=== PATIENT | female | born 1990 | race Caucasian/White ===

== ENCOUNTER → 2020-12-07 | Outpatient (CLI) | payer OTHER ==
--- NOTE | 2020-12-08 06:58 | MR ---
EXAMINATION TYPE: MR liver wo/w con DATE OF EXAM: 12/07/2020 COMPARISON: Outside CT November 16, 2020 HISTORY: Abnormal CT. Acute abdominal pain and palpitations roughly 1 month earlier. CONTRAST: Standard multiplanar, multisequence MRI departmental protocol utilizing 6.5 mL intravenous Gadavist g adolinium contrast. Imaging performed of the abdomen focusing on the liver. FINDINGS: Liver: Liver remains normal in size. No significant signal dropout identified on in and out of phase imaging. Corresponding to CT there is oval roughly 2.5 x 3.4 x 3.1 cm lesion in the inferior aspect a nterior segment right hepatic lobe axial image 23 series 601 and coronal series 201 image 8 of slight T2 hyperintensity that is isodense to minimally hypointense on T1-weighted images. Dynamic postcontr ast imaging is suboptimal as no distinct hepatic arterial phase is performed. The first postcontrast phase imaging shows opacified nondilated portal vein and branching veins and patent hepatic veins ojse ining into IVC. This shows heterogeneous enhancement of the lesion relative to remainder of the liver . More delayed images show lesion to appear isointense to remainder of the liver. There is suggestion of some central linear enhancement or possible enhancing scar. No surrounding ascites. No additional concerning intrahepatic masses. Gallbladder appears within normal limits. No intrahepatic or extra h epatic biliary dilatation. Other: Lung bases are clear. The spleen, pancreas, both adrenal glands appear within normal limits. N o concerning renal mass or hydronephrosis. No suspicious bowel dilatation. No intra-abdominal ascites . Visualized osseous structures are intact. IMPRESSION: Redemonstration of known 3.4 cm solid intrahepatic mass. Dynamic postcontrast imaging fav ors or is most consistent with [facility].
== END | disposition home or self-care (01) ==
LOC: RADMRIMAIN 06:24
PROVIDERS: ATTEND Family Medicine
DX: R16.0 Hepatomegaly, not elsewhere classified (principal)
CPT/HCPCS: 74183; A9585

== ENCOUNTER 2021-09-10 08:35 | Inpatient (IN) | payer MEDICAID, OTHER ==
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
[2021-09-10] MEDS ORDERED: LORazepam 2 MG/ML INJ IM STA (11:47)
[2021-09-10] MEDS ORDERED: HALOPERIDOL LACTATE 5 MG/ML 1 ML VIAL IM STA (11:47)
[2021-09-10] MEDS ORDERED: THIAMINE 100 MG/ML 2 ML VIAL IM STA (11:47)
[2021-09-10] MEDS ORDERED: MAG HYDROX/AL HYDROX/SIMETH 30 ML CUP PO PRN (15:03)
[2021-09-10] MEDS ORDERED: MAGNESIUM HYDROXIDE 2,400 MG/10 ML CUP PO PRN (15:03)
[2021-09-10] MEDS ORDERED: LORazepam 2 MG/ML INJ IM PRN (15:07)
[2021-09-10] MEDS ORDERED: HALOPERIDOL LACTATE 5 MG/ML 1 ML VIAL IM PRN (15:08)
[2021-09-10] MEDS ORDERED: haloperidoL 5 MG TAB PO PRN (15:09)
[2021-09-10 16:50] LABS: Amphetamine Screen,Urine Not Detected (NotDetected); Barbiturate Screen,Urine Not Detected (NotDetected); Benzodiazepines Screen,Urine Detected (NotDetected); Cocaine Screen,Urine Not Detected (NotDetected); Methadone Screen, Urine Not Detected (NotDetected); Opiate Screen,Urine Not Detected (NotDetected); Oxycodone Screen, Urine Not Detected (NotDetected); Phencyclidine Screen,Urine Not Detected (NotDetected); Tricyclic Antidepressant,Urine Not Detected (NotDetected); Urn Cannabinoid Scrn Detected (NotDetected)
[2021-09-10] MEDS: LORazepam 1 MG TAB PO PRN (20:40)
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
[2021-09-11 07:23] LABS: Basophils % (A) 1 %; Eosinophils # (A) 0.1 k/uL (0-0.7); Eosinophils % (A) 1 %; HCT 45.9 % (34.0-46.0); HGB 15.1 gm/dL (11.4-16.0); Lymphocytes % (A) 37 %; MCH 32.2 pg (25.0-35.0); MCV 97.7 fL (80.0-100.0); Mean Platelet Volume 8.2; Monocytes # (A) 0.3 k/uL (0-1.0); Monocytes % (A) 4 %; Neutrophils # (A) 4.5 k/uL (1.3-7.7); Neutrophils % (A) 55 %; Platelet Count 234 k/uL (150-450); RBC 4.69 m/uL (3.80-5.40); RDW 13.5 % (11.5-15.5); WBC 8.1 k/uL (3.8-10.6)
[2021-09-11 07:54] LABS: ALT 29 U/L (4-34); AST 44 U/L (14-36); African American GFR (CKD) >90 (>60 ml/min/1.73 sqM); Albumin 4.1 g/dL (3.5-5.0); Alkaline Phosphatase 80 U/L (38-126); Anion Gap 11 mmol/L; Bilirubin, Delta 0.1 mg/dL (0.0-0.2); Bilirubin,Unconjugated 1.1 mg/dL (0.0-1.1); Blood Urea Nitrogen 14 mg/dL (7-17); Calcium 9.7 mg/dL (8.4-10.2); Carbon Dioxide 25 mmol/L (22-30); Chloride 99 mmol/L (98-107); Glucose 90 mg/dL (74-99); Non-African American GFR(CKD) >90 (>60 ml/min/1.73 sqM); Potassium 3.9 mmol/L (3.5-5.1); Sodium 135 mmol/L (137-145); Total Bilirubin 1.2 mg/dL (0.2-1.3); Total Protein 6.8 g/dL (6.3-8.2)
[2021-09-11] MEDS: NICOTINE 14MG/24HR PATCH TRANSDERM SCH (08:04)
[2021-09-11 11:47] LABS: Chol/HDL Ratio 2.23 Ratio; LDL Cholesterol,Calculated 105.8 mg/dL (0.0-131.0)
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
[2021-09-11] MEDS: DIVALPROEX 250 MG TABLET.DR PO SCH (19:55)
[2021-09-11] MEDS: ACETAMINOPHEN TAB 325 MG TAB PO PRN (20:13)
[2021-09-11] MEDS ORDERED: QUEtiapine 50 MG TAB PO SCH (21:00)
[2021-09-12] MEDS: NICOTINE 14MG/24HR PATCH TRANSDERM SCH (07:17)
[2021-09-12] MEDS: ACETAMINOPHEN TAB 325 MG TAB PO PRN ×2 (08:32→20:39)
[2021-09-12] MEDS: DIVALPROEX 250 MG TABLET.DR PO SCH (08:33)
[2021-09-12] MEDS ORDERED: lamoTRIgine 25 MG TAB PO ONE (09:23)
[2021-09-12] MEDS ORDERED: ASENAPINE 5 MG TAB SUBLINGUAL STA (09:25)
[2021-09-12] MEDS: NICOTINE GUM (POLACRILEX) 2 MG GUM BUCCAL PRN ×3 (09:31→18:36)
--- NOTE | 2021-09-12 10:56 | P.PN ---
Progress Note - Text Progress Note Date: 09/12/21 Interval History: Patient was seen wandering the hallways and was directable and agreeable to speak with residential mortgage underwriter in the office. The patient reports that she is feeling "okay." She states that the Depakote caused her to experience some sort of headache and is inquiring whether she can take Lamictal and Saphris instead of her current regimen. She reports that she underwent Zane site testing and it showed that Saphris was an appropriate medication for her. The patient is agreeable to starting these medications and was informed that usual side effects that she should experience would be mild in nature and possibly psychogenic in origin. The patient is not reporting any suicidal or homicidal ideation, intention, and/or plan. She is not reporting any auditory or visual hallucinations. She does report some difficulty with sleep and some racing thoughts but is otherwise not endorsing any significant manic symptoms. Mental Status Exam: General Appearance: Patient appears to be stated age is alert, directable, and cooperative. Short cut blonde hair. Well laundered clothes. Behavior: Patient is calmly seated without any agitated behavior. Slightly elevated psychomotor activity. Speech: Patient's speech is fluent but mildly pressured. Mood/Affect: Mood is improving mildly, affect is congruent and expansive Suicidality/Homicidality: Patient denies having any suicidal or homicidal ideation intent or plan. Perceptions: Patient denies any visual hallucinations and denies any auditory hallucinations Though content/process: Patient is very somatic. Thought process is otherwise linear and logical. Memory and concentration: AOX3, grossly intact for the purposes of this session Judgment and insight: Improving mildly Vital Signs Temp 97.2 F L 09/11/21 03:14 Pulse 75 09/12/21 09:37 Resp 18 09/12/21 05:30 BP 142/95 09/12/21 09:37 Pulse Ox 97 09/12/21 05:30 Laboratory Results - Last 24 Hours 09/11/21 09/11/21 06:41 06:[address] Glu mg/dL 103 Hemoglobin A1c 5.2 Triglycerides 106.00 Cholesterol 230.00 H LDL Cholesterol, Calc 105.8 VLDL Cholesterol, Calc 21.20 HDL Cholesterol 103.00 H Cholesterol/HDL Ratio 2.23 Assessment Bipolar 1 disorder, manic episode Rule out schizoaffective disorder bipolar type Nicotine dependence Plan: -Patient continues to meet criteria for inpatient psychiatric admission for symptom stabilization and safety. Patient has signed adult voluntary form and medication consent and was placed in patient's chart. -Medications: Start Lamictal 25 mg by mouth daily for mood stabilization Start Saphris 5 mg by mouth twice a day for mood stabilization/psychosis -When necessary Ativan and Haldol for agitation/aggression. -NRT - nicotine patch and Nicorette gum -SW on board for discharge planning. Encouraged the patient to participate in milieu.
[2021-09-12] MEDS: ASENAPINE 5 MG TAB SUBLINGUAL SCH (20:40)
[2021-09-13] MEDS: NICOTINE GUM (POLACRILEX) 2 MG GUM BUCCAL PRN ×4 (05:57→21:20)
[2021-09-13] MEDS: NICOTINE 14MG/24HR PATCH TRANSDERM SCH (08:32)
[2021-09-13] MEDS: ASENAPINE 5 MG TAB SUBLINGUAL SCH ×2 (08:33→21:20)
[2021-09-13] MEDS: lamoTRIgine 25 MG TAB PO SCH (08:33)
--- NOTE | 2021-09-13 10:46 | P.PN ---
Progress Note - Text Progress Note Date: 09/13/21 Interval History: Patient was seen wandering the hallways and was directable and agreeable to speak with promotion writer in the office. The patient reports that she is feeling "better." The patient has been adherent with the medications aside from sedation is not reporting significant side effects. The patient reports that her thoughts appeared to be more linear and easy to follow. She reports that she was able to sleep well last night. She is currently not reporting any haim cidal or homicidal ideation, intention, and/or plan. She is not reporting any auditory or visual hallucinations. She is denying any paranoia or other delusions at this time. The patient displays some future orientation expresses concern about outpatient follow-up as well as finding housing. She wishes to be open with [facility] so that they may aid her in finding a home. Mental Status Exam: General Appearance: Patient appears to be stated age is alert, directable, and cooperative. Short cut blonde hair. Well laundered clothes. Behavior: Patient is calmly seated without any agitated behavior. Normal psychomotor activity. Speech: Patient's speech is fluent and nonpressured today. Mood/Affect: Mood is improving mildly, affect is congruent and with appropriate range Suicidality/Homicidality: Patient denies having any suicidal or homicidal ideation intent or plan. Perceptions: Patient denies any visual hallucinations and denies any auditory hallucinations Though content/process: Patient continues to be somewhat somatic but thought process is otherwise linear and logical. Memory and concentration: AOX3, grossly intact for the purposes of this session Judgment and insight: Improving mildly Vital Signs Temp 97.2 F L 09/13/21 03:58 Pulse 81 09/13/21 03:58 Resp 14 09/13/21 03:58 BP 132/91 09/13/21 03:58 Pulse Ox 97 09/12/21 05:30 Assessment Bipolar 1 disorder, manic episode Rule out schizoaffective disorder bipolar type Nicotine dependence Plan: -Patient continues to meet criteria for inpatient psychiatric admission for symptom stabilization and safety. Patient has signed adult voluntary form and medication consent and was placed in patient's chart. -Medications: Continue Lamictal 25 mg by mouth daily for mood stabilization Increase Saphris to 5 mg in the morning and 10 mg at bedtime for mood stabilization/psychosis -When necessary Ativan and Haldol for agitation/aggression. -NRT - nicotine patch and Nicorette gum -SW on board for discharge planning. Encouraged the patient to participate in milieu.
[2021-09-13] MEDS: ACETAMINOPHEN TAB 325 MG TAB PO PRN (13:30)
[2021-09-13] MEDS: IBUPROFEN 800 MG TAB PO PRN (14:48)
[2021-09-14] MEDS: NICOTINE 14MG/24HR PATCH TRANSDERM SCH (07:34)
[2021-09-14] MEDS: ASENAPINE 5 MG TAB SUBLINGUAL SCH ×2 (08:19→21:08)
[2021-09-14] MEDS: lamoTRIgine 25 MG TAB PO SCH (08:19)
[2021-09-14] MEDS: IBUPROFEN 800 MG TAB PO PRN ×2 (08:20→16:34)
--- NOTE | 2021-09-14 10:52 | P.PN ---
Progress Note - Text Progress Note Date: 09/14/21 Interval History: Patient was seen wandering the hallways and was directable and agreeable to speak with bid writer in the office. The patient reports that she is feeling "okay." The patient expresses some concern about her housing situation. She expresses that she is unhappy with how social workers handling her case. It should be noted though that the patient has been going in between 2 different counties making it difficult to coordinate an aftercare plan. She is currently not reporting any suicidal or homicidal ideation, nausea, and/or plan. She is not reporting auditory or visual hallucinations. She denies any paranoia or delusions. The patient has been harassed medication is not endorsing any significant side effects of this time. She denies any issues regarding her sleep or appetite. In regards to manic symptoms, the patient is not endorsing any racing thoughts, mood lability, increased goal-directed behavior, or excessive energy. Mental Status Exam: General Appearance: Patient appears to be stated age is alert, directable, and cooperative. Short cut blonde hair. Well laundered clothes. Behavior: Patient is calmly seated without any agitated behavior. Normal psychomotor activity. Speech: Patient's speech is fluent and nonpressured today. Mood/Affect: Mood is "okay," affect is irritable Suicidality/Homicidality: Patient denies having any suicidal or homicidal ideation intent or plan. Perceptions: Patient denies any visual hallucinations and denies any auditory hallucinations Though content/process: Patient continues to be somewhat somatic but thought process is otherwise linear and logical. Memory and concentration: AOX3, grossly intact for the purposes of this session Judgment and insight: Improving mildly Vital Signs Temp 97.2 F L 09/13/21 03:58 Pulse 81 09/13/21 03:58 Resp 14 09/13/21 03:58 BP 132/91 09/13/21 03:58 Pulse Ox 97 09/12/21 05:30 Assessment Bipolar 1 disorder, manic episode Rule out schizoaffective disorder bipolar type Nicotine dependence Rule out Cluster B Personality Disorder Plan: -Patient continues to meet criteria for inpatient psychiatric admission for symptom stabilization and safety. Patient has signed adult voluntary form and medication consent and was placed in patient's chart. -Medications: Continue Lamictal 25 mg by mouth daily for mood stabilization Continue Saphris 5 mg in the morning and 10 mg at bedtime for mood stabilization/psychosis -When necessary Ativan and Haldol for agitation/aggression. -NRT - nicotine patch and Nicorette gum -SW on board for discharge planning. Encouraged the patient to participate in milieu.
[2021-09-14] MEDS: NICOTINE GUM (POLACRILEX) 2 MG GUM BUCCAL PRN ×3 (12:12→21:08)
[2021-09-15 05:25] VITALS: BP 124/87; PULSE 65; RESP 16; TEMP 97.6
[2021-09-15] MEDS: NICOTINE 14MG/24HR PATCH TRANSDERM SCH (07:12)
[2021-09-15] MEDS: LORazepam 1 MG TAB PO PRN (07:12)
[2021-09-15] MEDS: lamoTRIgine 25 MG TAB PO SCH (07:13)
[2021-09-15] MEDS: ASENAPINE 5 MG TAB SUBLINGUAL SCH (07:13)
[2021-09-15] MEDS: IBUPROFEN 800 MG TAB PO PRN (08:28)
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
[2021-09-15] MEDS: NICOTINE GUM (POLACRILEX) 2 MG GUM BUCCAL PRN (13:34)
== END 2021-09-15 14:10 | disposition home or self-care (01) | DRG 885 ==
LOC: EC 08:35 → 3MHU 15:00
PROVIDERS: ADMIT Psychiatry & Neurology Psychiatry; ATTEND Psychiatry & Neurology Psychiatry
DX: F31.2 Bipolar disorder, current episode manic severe with psychotic features (principal); F12.10 Cannabis abuse, uncomplicated; Z71.51 Drug abuse counseling and surveillance of drug abuser; Z71.6 Tobacco abuse counseling; F17.210 Nicotine dependence, cigarettes, uncomplicated; Z59.00 Homelessness unspecified; Z79.899 Other long term (current) drug therapy; Z63.5 Disruption of family by separation and divorce; Z56.0 Unemployment, unspecified; Z88.0 Allergy status to penicillin; Z88.8 Allergy status to other drugs, medicaments and biological substances; Z20.822 Contact with and (suspected) exposure to COVID-19
CPT/HCPCS: 80053; 80061; 80306; 81025; 82075; 82248; 83036; 84443; 85025; 87635; 96372; 99285

== ENCOUNTER 2021-12-03 09:52 | Inpatient (IN) | payer MEDICAID, OTHER ==
[2021-12-03 10:34] LABS: Amphetamine Screen,Urine Not Detected (NotDetected); Barbiturate Screen,Urine Not Detected (NotDetected); Benzodiazepines Screen,Urine Not Detected (NotDetected); Cocaine Screen,Urine Not Detected (NotDetected); Methadone Screen, Urine Not Detected (NotDetected); Opiate Screen,Urine Not Detected (NotDetected); Oxycodone Screen, Urine Not Detected (NotDetected); Phencyclidine Screen,Urine Not Detected (NotDetected); Tricyclic Antidepressant,Urine Not Detected (NotDetected); Urn Cannabinoid Scrn Not Detected (NotDetected)
--- NOTE | 2021-12-03 11:09 | ED ---
Psych HPI - General Chief Complaint: Psychiatric Symptoms Stated Complaint: mental health Time Seen by Provider: 12/03/21 09:53 Source: patient, EMS, RN notes reviewed Mode of arrival: wheelchair Limitations: no limitations - History of Present Illness Initial Comments: 31-year-old female presents emergency Department via EMS for psychiatric evaluation. Patient states she needs help she was admitted in August for psychiatric problems states that she's getting worse. She was placed on Saphris at the time but states that she did not agree with it. Patient has flight of ideas, room thoughts in the room patient denies illicit drug use she states she is having suicidal ideation she's had a prior suicide attempt at age 16 and which tried overdose. Patient denies any homicidal ideation - Related Data Home Medications Medication Instructions Recorded Confirmed Apri 0.15-0.03mg 1 tab PO DAILY 12/03/21 12/03/21 Ibuprofen [Motrin Ib] 200 mg PO Q8H PRN 12/03/21 12/03/21 Allergies Allergy/AdvReac Type Severity Reaction Status Date / Time ciprofloxacin [From Cipro] Allergy Rash/Hives Verified 12/03/21 13:36 clavulanic acid Allergy Rash/Hives Verified 12/03/21 13:36 [From Augmentin] nickel Allergy Rash/Hives Verified 12/03/21 13:36 risperidone [From Risperdal] Allergy Unknown Verified 12/03/21 13:36 Childhood amoxicillin [From Augmentin] AdvReac Rash/Hives Verified 12/03/21 13:36 Review of Systems ROS Statement: Those systems with pertinent positive or pertinent negative responses have been documented in the HPI. ROS Other: All systems not noted in ROS Statement are negative. Past Medical History Past Medical History: No Reported History History of Any Multi-Drug Resistant Organisms: None Reported Past Surgical History: No Surgical Hx Reported Past Psychological History: Bipolar Smoking Status: Former smoker Past Alcohol Use History: Daily Past Drug Use History: Marijuana - Past Family History Mother Family Medical History: Hyperlipidemia General Exam General appearance: alert, in no apparent distress, anxious Head exam: Present: atraumatic, normocephalic, normal inspection Eye exam: Present: normal appearance, PERRL, EOMI. Absent: scleral icterus, conjunctival injection, periorbital swelling ENT exam: Present: normal exam, normal oropharynx, mucous membranes moist Neck exam: Present: normal inspection. Absent: tenderness, meningismus, lymphadenopathy Respiratory exam: Present: normal lung sounds bilaterally. Absent: respiratory distress, wheezes, rales, rhonchi, stridor Cardiovascular Exam: Present: regular rate, normal rhythm, normal heart sounds. Absent: systolic murmur, diastolic murmur, rubs, gallop, clicks Neurological exam: Present: alert, oriented X3 Psychiatric exam: Present: anxious, manic Skin exam: Present: warm, dry, intact, normal color. Absent: rash Course Vital Signs 12/03/21 09:54 Temperature 98.2 F Pulse Rate 105 H Respiratory 19 Rate Blood Pressure 156/87 O2 Sat by Pulse 98 Oximetry Medical Decision Making - Medical Decision Making Patient had by psychiatric services recommends patient. Mid to the hospital for treatment - Lab Data Lab Results 12/03/21 Range/Units 10:06 Urine Opiates Screen Not Detected (NotDetected) Ur Oxycodone Screen Not Detected (NotDetected) Urine Methadone Screen Not Detected (NotDetected) Ur Propoxyphene Screen Not Detected (NotDetected) Ur Barbiturates Screen Not Detected (NotDetected) U Tricyclic Antidepress Not Detected (NotDetected) Ur Phencyclidine Scrn Not Detected (NotDetected) Ur Amphetamines Screen Not Detected (NotDetected) U Methamphetamines Scrn Not Detected (NotDetected) U Benzodiazepines Scrn Not Detected (NotDetected) Urine Cocaine Screen Not Detected (NotDetected) U Marijuana (THC) Screen Not Detected (NotDetected) Disposition Clinical Impression: Psychosis, Depression, Suicidal ideation Disposition: TRANSFER TO PSYCH HOSP/UNIT Referrals: Haja Girard MD [Primary Care Provider] - 1-2 days
[2021-12-03] MEDS ORDERED: NICOTINE 21MG/24HR PATCH TRANSDERM STA (12:49)
[2021-12-03] MEDS ORDERED: MAG HYDROX/AL HYDROX/SIMETH 30 ML CUP PO PRN (14:59)
[2021-12-03] MEDS ORDERED: MAGNESIUM HYDROXIDE 2,400 MG/10 ML CUP PO PRN (14:59)
[2021-12-03] MEDS ORDERED: HALOPERIDOL LACTATE 5 MG/ML 1 ML VIAL IM PRN (14:59)
[2021-12-03] MEDS ORDERED: LORazepam 2 MG/ML INJ IM PRN (15:03)
[2021-12-03] MEDS ORDERED: haloperidoL 5 MG TAB PO PRN (15:03)
[2021-12-03] MEDS ORDERED: ACETAMINOPHEN TAB 325 MG TAB PO PRN (16:26)
[2021-12-03] MEDS: LORazepam 1 MG TAB PO PRN (19:43)
--- NOTE | 2021-12-04 02:55 | P.MDCNMH ---
History of Present Illness H&P Date: 12/04/21 Chief Complaint: medical eval 31 year old female with borderline hypertension , not currently on medications patient comes in due to suicidal ideation requesting psych eval she denies any medical concerns at this time, denies any fever, chills, URI, chest pain SOB, abd pain , GI bleeding, changes in urinary or bowel habits. she does have blisters on her feet due to doing a lot of walking Review of Systems Pertinent positives as noted in HPI. All other systems were reviewed and are negative Past Medical History Past Medical History: No Reported History History of Any Multi-Drug Resistant Organisms: None Reported Past Surgical History: No Surgical Hx Reported Past Anesthesia/Blood Transfusion Reactions: No Reported Reaction Past Psychological History: Bipolar Smoking Status: Former smoker Past Alcohol Use History: Daily Past Drug Use History: Marijuana - Past Family History Mother Family Medical History: Hyperlipidemia Medications and Allergies Home Medications Medication Instructions Recorded Confirmed Type Apri 0.15-0.03mg 1 tab PO DAILY 12/03/21 12/03/21 History Ibuprofen [Motrin Ib] 200 mg PO Q8H PRN 12/03/21 12/03/21 History Allergies Allergy/AdvReac Type Severity Reaction Status Date / Time ciprofloxacin [From Cipro] Allergy Rash/Hives Verified 12/03/21 13:36 clavulanic acid Allergy Rash/Hives Verified 12/03/21 13:36 [From Augmentin] nickel Allergy Rash/Hives Verified 12/03/21 13:36 risperidone [From Risperdal] Allergy Unknown Verified 12/03/21 13:36 Childhood amoxicillin [From Augmentin] AdvReac Rash/Hives Verified 12/03/21 13:36 Physical Exam Vitals: Vital Signs Temp Pulse Pulse Resp BP BP Pulse Ox 12/03/21 15:57 98.2 F 83 16 147/100 97 12/03/21 09:54 98.2 F 105 H 19 156/87 98 Intake and Output 12/03/21 12/03/21 12/04/21 14:59 22:59 06:59 Other: Weight 61.235 kg 63 kg Constitutional: No acute distress, conversant, pleasant Eyes: Anicteric sclerae, moist conjunctiva, Pupils equal round reactive to light ENMT: NC/AT Oropharynx clear, no erythema, or exudates Neck: Supple, no masses, or JVD No carotid bruits No thyromegaly Lungs: Clear to auscultation Clear to percussion Normal respiratory effort, no accessory muscle use Cardiovascular: Heart regular in rate and rhythm, No murmurs, gallops, or rubs No peripheral edema Abdominal: Soft Nontender, no guarding, rebound or rigidity Abdomen moving with respiration Normoactive bowel sounds No hepatomegaly, No splenomegaly No palpable mass No abdominal wall hernia noted Skin: blisters bilateral feet over the sole of some of her toes, otherwise Normal temperature, tone, texture, turgor Extremities: No digital cyanosis No clubbing Pedal pulses intact and symmetrical Radial pulses intact and symmetrical No calf tenderness Psychiatric: Alert and oriented to person, place and time Appropriate affect Neuro Muscles Strength 5/5 in all 4 extremities Sensation to light touch grossly present throughout Cranial nerves II-XII grossly intact Lymphatics: no palpable cervical or supraclavicular , or inguinal lymph nodes Cranial Nerve Examination - Cranial Nerves Cranial Nerve II- Optic: Intact Cranial Nerve III- Oculomotor: Intact Cranial Nerve IV- Trochlear: Intact Cranial Nerve V- Trigeminal: Intact Cranial Nerve - Abducens: Intact Cranial Nerve VII- Facial: Intact Cranial Nerve VIII- Auditory: Intact Cranial Nerve IX- Glossopharyngeal: Intact Cranial Nerve X- Vagus: Intact Cranial Nerve XI- Accessory: Intact Cranial Nerve XII- Hypoglossal: Intact Assessment and Plan Assessment: depression and suicidal ideation management per psych no acute medical conditions border line hypertension not on medications continue to monitor her blood pressure, if persistently high , then will consider starting on amlodipine follow up labs Thank you for allowing us to participate in the care of this patient. We will follow peripherally. Do not hesitate to contact us with questions. Someone can be reached from the [facility] hospitalist group at all hours of the day at [phone].
[2021-12-04 07:42] LABS: Basophils % (A) 1 %; Eosinophils # (A) 0.2 k/uL (0-0.7); Eosinophils % (A) 2 %; HCT 48.5 % (34.0-46.0); HGB 15.9 gm/dL (11.4-16.0); Lymphocytes # (A) 2.7 k/uL (1.0-4.8); Lymphocytes % (A) 34 %; MCH 32.3 pg (25.0-35.0); MCHC 32.7 g/dL (31.0-37.0); MCV 98.8 fL (80.0-100.0); Mean Platelet Volume 8.6; Monocytes # (A) 0.5 k/uL (0-1.0); Monocytes % (A) 6 %; Neutrophils # (A) 4.3 k/uL (1.3-7.7); Neutrophils % (A) 55 %; Platelet Count 270 k/uL (150-450); RBC 4.91 m/uL (3.80-5.40); RDW 13.6 % (11.5-15.5); WBC 7.9 k/uL (3.8-10.6)
[2021-12-04 08:02] LABS: ALT 36 U/L (4-34); AST 36 U/L (14-36); African American GFR (CKD) >90 (>60 ml/min/1.73 sqM); Albumin 3.9 g/dL (3.5-5.0); Alkaline Phosphatase 77 U/L (38-126); Anion Gap 3 mmol/L; Blood Urea Nitrogen 13 mg/dL (7-17); Calcium 9.2 mg/dL (8.4-10.2); Carbon Dioxide 29 mmol/L (22-30); Chloride 104 mmol/L (98-107); Glucose 85 mg/dL (74-99); Non-African American GFR(CKD) >90 (>60 ml/min/1.73 sqM); Sodium 136 mmol/L (137-145); Total Bilirubin 0.7 mg/dL (0.2-1.3); Total Protein 6.9 g/dL (6.3-8.2)
[2021-12-04] MEDS ORDERED: NICOTINE 14MG/24HR PATCH TRANSDERM SCH (09:00)
[2021-12-04] MEDS ORDERED: PNEUMOCOCCAL VACC-PNEUMOVAX 23 25 MCG/0.5 ML VIAL IM ONE (10:00)
[2021-12-04] MEDS ORDERED: INFLUENZA VACC (6 MOS-64 YRS) 60 MCG/0.5 ML SYRINGE IM ONE (10:00)
[2021-12-04] MEDS: NICOTINE 21MG/24HR PATCH TRANSDERM SCH (10:04)
[2021-12-04] MEDS ORDERED: hydrOXYzine pamoate 25 MG CAP PO PRN (12:01)
[2021-12-04] MEDS ORDERED: ZIPRASIDONE 20 MG CAP PO PRN (12:17)
[2021-12-04] MEDS ORDERED: ZIPRASIDONE 20 MG VIAL IM PRN (12:17)
--- NOTE | 2021-12-04 12:17 | P.HP ---
Psychiatric H&P - . H&P Date: 12/04/21 History & Physical: Allergies Allergy/AdvReac Type Severity Reaction Status Date / Time ciprofloxacin [From Cipro] Allergy Rash/Hives Verified 12/03/21 13:36 clavulanic acid Allergy Rash/Hives Verified 12/03/21 13:36 [From Augmentin] nickel Allergy Rash/Hives Verified 12/03/21 13:36 risperidone [From Risperdal] Allergy Unknown Verified 12/03/21 13:36 Childhood amoxicillin [From Augmentin] AdvReac Rash/Hives Verified 12/03/21 13:36 Vital Signs Temp 97.4 F L 12/04/21 06:22 Pulse 99 12/04/21 10:01 Resp 18 12/04/21 06:22 BP 132/94 12/04/21 10:01 Pulse Ox 97 12/03/21 15:57 Intake & Output 12/03/21 12/04/21 12/04/21 18:59 06:59 18:59 Weight 63 kg Laboratory Last Values WBC 7.9 k/uL (3.8-10.6) 12/04/21 06:56 RBC 4.91 m/uL (3.80-5.40) 12/04/21 06:56 Hgb 15.9 gm/dL (11.4-16.0) 12/04/21 06:56 Hct 48.5 % (34.0-46.0) H 12/04/21 06:56 MCV 98.8 fL (80.0-100.0) 12/04/21 06:56 MCH 32.3 pg (25.0-35.0) 12/04/21 06:56 MCHC 32.7 g/dL (31.0-37.0) 12/04/21 06:56 RDW 13.6 % (11.5-15.5) 12/04/21 06:56 Plt Count 270 k/uL (150-450) 12/04/21 06:56 MPV 8.6 12/04/21 06:56 Neutrophils % 55 % 12/04/21 06:56 Lymphocytes % 34 % 12/04/21 06:56 Monocytes % 6 % 12/04/21 06:56 Eosinophils % 2 % 12/04/21 06:56 Basophils % 1 % 12/04/21 06:56 Neutrophils # 4.3 k/uL (1.3-7.7) 12/04/21 06:56 Lymphocytes # 2.7 k/uL (1.0-4.8) 12/04/21 06:56 Monocytes # 0.5 k/uL (0-1.0) 12/04/21 06:56 Eosinophils # 0.2 k/uL (0-0.7) 12/04/21 06:56 Basophils # 0.0 k/uL (0-0.2) 12/04/21 06:56 Sodium 136 mmol/L (137-145) L 12/04/21 06:56 Potassium 4.0 mmol/L (3.5-5.1) 12/04/21 06:56 Chloride 104 mmol/L (98-107) 12/04/21 06:56 Carbon Dioxide 29 mmol/L (22-30) 12/04/21 06:56 Anion Gap 3 mmol/L 12/04/21 06:56 BUN 13 mg/dL (7-17) 12/04/21 06:56 Creatinine 0.79 mg/dL (0.52-1.04) 12/04/21 06:56 Est GFR (CKD-EPI)AfAm >90 (>60 ml/min/1.73 sqM) 12/04/21 06:56 Est GFR (CKD-EPI)NonAf >90 (>60 ml/min/1.73 sqM) 12/04/21 06:56 Glucose 85 mg/dL (74-99) 12/04/21 06:[address] Glu mg/dL 103 12/04/21 06:56 Hemoglobin A1c 5.2 % (0.0-6.0) 12/04/21 06:56 Calcium 9.2 mg/dL (8.4-10.2) 12/04/21 06:56 Total Bilirubin 0.7 mg/dL (0.2-1.3) 12/04/21 06:56 AST 36 U/L (14-36) 12/04/21 06:56 ALT 36 U/L (4-34) H 12/04/21 06:56 Alkaline Phosphatase 77 U/L (38-126) 12/04/21 06:56 Total Protein 6.9 g/dL (6.3-8.2) 12/04/21 06:56 Albumin 3.9 g/dL (3.5-5.0) 12/04/21 06:56 TSH 0.849 mIU/L (0.465-4.680) 12/04/21 06:56 Urine Opiates Screen Not Detected (NotDetected) 12/03/21 10:06 Ur Oxycodone Screen Not Detected (NotDetected) 12/03/21 10:06 Urine Methadone Screen Not Detected (NotDetected) 12/03/21 10:06 Ur Propoxyphene Screen Not Detected (NotDetected) 12/03/21 10:06 Ur Barbiturates Screen Not Detected (NotDetected) 12/03/21 10:06 U Tricyclic Antidepress Not Detected (NotDetected) 12/03/21 10:06 Ur Phencyclidine Scrn Not Detected (NotDetected) 12/03/21 10:06 Ur Amphetamines Screen Not Detected (NotDetected) 12/03/21 10:06 U Methamphetamines Scrn Not Detected (NotDetected) 12/03/21 10:06 U Benzodiazepines Scrn Not Detected (NotDetected) 12/03/21 10:06 Urine Cocaine Screen Not Detected (NotDetected) 12/03/21 10:06 U Marijuana (THC) Screen Not Detected (NotDetected) 12/03/21 10:06 Coronavirus (PCR) Not Detected (Not Detectd) 12/03/21 13:25 12/04/21 11:52 IDENTIFYING DATA: Patient is a unemployed, 31-year-old female with significant history of bipolar disorder, has 3 kids, is currently homeless. HPI: Patient presented to the hospital yesterday for psychiatric evaluation according to ER report. Patient stated that she apparently been on Saphris in August and also Lamictal during her last psychiatric hospitalization on the mental health unit. She had stated that it did not agree with her and was developing side effects. She had flight of ideas and was having suicidal thoughts on admission. Her UDS was negative. Patient was admitted and signed voluntary. She was seen today and agreeable to speak to contract technical writer. Patient displayed a flight of ideas, was rambling and tangential/circumstantial. She claims that she is currently homeless and got kicked out of her mother's house. She states that her mother has been using "some kind of new drug" and has been unstable. She states that the police wouldn't let her back in the house and she has been finding it difficult homeless. She states that she has been sleeping on different people's couches and has been staying at drug houses however states that "I'm being exposed to drugs but not using them" and states that she "can't use drugs anymore". She states that she has had multiple pain complaints and also talked about having "PCO S" and other somatic issues. She claims that she does have racing thoughts and is admitting to depression, feeling overwhelmed and hopeless. She is also endorsing anxiety. She states that her sleep has been very poor lately. She is currently endorsing suicidal thoughts however no intent or plan. She is denying any auditory or visual hallucinations. She is not endorsing any delusions at this time or paranoia. She claims that she stopped taking the psychiatric medications after discharge last in August. PAST PSYCHIATRIC HISTORY: Patient states that previously diagnosed bipolar disorder and anxiety. Patient is able to recall being previously prescribed Abilify, Stelazine, Risperdal, Trileptal, Wellbutrin, BuSpar, Depakote, lithium, Lamictal, and Trintellix. She claims that she has had several side effects and problems with different medications in the past however was very nonspecific. The patient reports numerous psychiatric admissions i and her last psychiatric admission to the mental health unit was in August 2021. Patient was previously open with [facility] but her case has been closed by [facility]. The patient reports one prior attempt at suicide when she was 16. PMH: PCOS ALLERGIES: As per EMR CHEMICAL DEPENDENCY HISTORY: The patient reports occasional alcohol use however claims that he she has stopped using this. She does report daily tobacco use. She denies any marijuana or illicit drug use. FAMILY PSYCHIATRIC/SUBSTANCE USE HISTORY: The patient reports that her mother has Munchhausen syndrome and also drug abuse. She also reports that her father has drug-induced psychosis. SOCIAL HISTORY: Patient was born in [place] and raised in [place], [place]. The patient is currently legally . She currently has no income. She has 3 children in [place]. She is currently homeless. She reports no history of legal issues or service. MENTAL STATUS EXAM: General Appearance: Patient appears to be stated age is alert, directable, and attempts to cooperate. Patient appears to have fair hygiene and grooming. Behavior: Patient is seated without any agitated behavior. Psychomotor activity elevated. Eye contact is intense. Speech: Patient's speech is spontaneous, pressured, rapid, hyperverbal. Mood/Affect: Patient reports their mood is "depression and anxiety," affect is expansive and euphoric Suicidality/Homicidality: Patient denies having any homicidal ideation intent or plan. Denies any suicidal ideations intent or plan Perceptions: Patient denies any visual hallucinations and denies any auditory hallucinations Though content/process: tangential/circumstantial, rambles at times. somatically preoccupied. Thought process appears to be with a flight of ideas. Memory and concentration: AOX3, grossly intact for the purposes of this session. Can spell "WORLD" backwards Judgment and insight: poor STRENGTHS/WEAKNESSES: Strength is that the patient is in relatively good health. Weakness that the patient has a history of nonadherence with treatment and has severe mental illness. INTELLECT: average IMPRESSIONS: Bipolar disorder, mixed episode PTSD Nicotine dependence PLAN: -Patient is admitted under involuntary but converted to voluntary status to MHU for stabilization of psychiatric symptoms and safety. Patient signed adult voluntary form and medication consent and is placed in patient's chart. -Medications : Will start patient on Seroquel 25 mg daily at bedtime for mood stabilization/insomnia. patient requested to start back on trintellix 10 mg daily for mood/anxiety. vistaril prn for anxiety. -Ativan and Haldol PRN for agitation/aggression -Patient was informed of the risks, benefits and side effects of the medication and patient verbally consented to taking the medications. Patient signed med consent form and was placed in chart. -Internal Medicine consult to perform medical evaluation and physical. -NRT - nicotine patch - on board for discharge planning. Encourage patient to participate in groups to work on coping skills. patient is currently homeless and will need to be referred back to [facility] for follow up upon d/c 12/04/21 12:05
[2021-12-04] MEDS: VORTIOXETINE HYDROBROMIDE 10 MG TABLET PO SCH (12:35)
[2021-12-04] MEDS: LORazepam 1 MG TAB PO PRN ×2 (13:20→19:57)
[2021-12-04] MEDS: ETHINYL ESTRADIOL PO SCH (15:15)
[2021-12-04] MEDS: LEVONORGESTREL PO SCH (15:15)
[2021-12-04 15:19] LABS: Chol/HDL Ratio 2.27 Ratio; LDL Cholesterol,Calculated 127.3 mg/dL (0.0-131.0)
[2021-12-04] MEDS: QUEtiapine 25 MG TAB PO SCH ×2 (20:00→21:53)
[2021-12-04] MEDS ORDERED: QUEtiapine 50 MG TAB PO SCH (21:00)
[2021-12-05] MEDS: NICOTINE 21MG/24HR PATCH TRANSDERM SCH ×2 (08:22→12:58)
[2021-12-05] MEDS: VORTIOXETINE HYDROBROMIDE 10 MG TABLET PO SCH (08:54)
[2021-12-05] MEDS: ETHINYL ESTRADIOL PO SCH (08:55)
[2021-12-05] MEDS: LEVONORGESTREL PO SCH (08:55)
--- NOTE | 2021-12-05 10:05 | P.PN ---
Progress Note - Text Progress Note Date: 12/05/21 Interval History: Patient was seen wandering the hallways and was directable and agreeable to [facility] with web content writer in the office. Patient claims that she feels that she is going through withdrawals from her ocp that she was taking prior to coming into the hospital yesterday. She claims that she is doing better overall in terms of her mood and anxiety however has been very preoccupied still with her somatic symptoms and her PCOS. She continues to us several questions about antipsychotics and medications. She is more appropriate today more directable during conversation. Improvement in irritability and also in attention span. She continues to state that she is homeless and was asking about different options in the area. Patient is willing to go to the [facility] tomorrow. She asked if web content writer can prescribe her Apri which is her OCP for tomorrow. She claims that she was able to sleep very well last night and has a fair appetite. She claims that she is not interested in going to groups. At this time patient denies any suicidal or homical ideations, intent or plan. Patient denies any auditory, visual hallucinations. Patient denies any side effects from the medications and has been compliant with meds. Mental Status Exam: General Appearance: Patient appears to be stated age is alert, directable, and attempts to cooperate. Patient appears to have fair hygiene and grooming. Behavior: Patient is seated without any agitated behavior. Eye contact improving. More appropriate today. Speech: Patient's speech is spontaneous, rapid, improving Mood/Affect: Patient reports their mood is "better but frustrated," affect is congruent Suicidality/Homicidality: Patient denies having any homicidal ideation intent or plan. Denies any suicidal ideations intent or plan Perceptions: Patient denies any visual hallucinations and denies any auditory hallucinations Though content/process: rambles at times. somatically preoccupied. Thought process, more goal oriented. Memory and concentration: AOX3, grossly intact for the purposes of this session. Can spell "WORLD" backwards Judgment and insight: Improving mildly IMPRESSIONS: Bipolar disorder, mixed episode PTSD Nicotine dependence Plan: -Patient continues to meet criteria for inpatient psychiatric admission for symptom stabilization and safety. Patient has signed adult voluntary form and medication consent and was placed in patient's chart. -Medications: Continue Seroquel 25 mg daily at bedtime for mood stabiliza tion/insomnia. increase trintellix to 20 mg daily for mood/anxiety. vistaril prn for anxiety. -When necessary Ativan and Haldol for agitation/aggression. -web content writer called pharmacy to see if there was an equivalent ocp option for patient however there are currently none on formulary. -NRT - nicotine patch -SW on board for discharge planning. Encouraged the patient to participate in milieu. patient is currently homeless and will likely be discharged to group home tomorrow.
[2021-12-05 15:35] LABS: Appearance,Urine Clear (Clear); Bilirubin,Urine Negative (Negative); Blood,Urine Negative (Negative); Color,Urine Colorless; Glucose,Urine (UA) Negative (Negative); Ketones,Urine Negative (Negative); Leukocyte Esterase,Urine Negative (Negative); Nitrite,Urine Negative (Negative); PH, Urine 6.5 (5.0-8.0); Protein,Urine Negative (Negative); Specific Gravity,Urine 1.002 (1.001-1.035); Urobilinogen,Urine <2.0 mg/dL (<2.0)
[2021-12-05] MEDS: LORazepam 1 MG TAB PO PRN (17:41)
[2021-12-05] MEDS: QUEtiapine 25 MG TAB PO SCH (19:45)
[2021-12-06] MEDS: NICOTINE 14MG/24HR PATCH TRANSDERM SCH ×2 (07:59→10:59)
[2021-12-06] MEDS: ETHINYL ESTRADIOL PO SCH (07:59)
[2021-12-06] MEDS: LEVONORGESTREL PO SCH (07:59)
[2021-12-06 08:01] VITALS: BP 138/66; PULSE 89; RESP 20; TEMP 97.5
[2021-12-06] MEDS ORDERED: VORTIOXETINE HYDROBROMIDE 20 MG TABLET PO SCH (09:00)
[2021-12-06] MEDS ORDERED: HYDROCORTISONE 1% CREAM 30 GM TUBE TOPICAL PRN (09:51)
[2021-12-06] MEDS ORDERED: NICOTINE GUM (POLACRILEX) 2 MG GUM BUCCAL PRN (10:07)
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
== END 2021-12-06 14:03 | disposition other institution (70) | DRG 885 ==
LOC: EC 09:52 → 3MHU 14:54
PROVIDERS: ADMIT Psychiatry & Neurology Psychiatry; ATTEND Psychiatry & Neurology Psychiatry
DX: F31.60 Bipolar disorder, current episode mixed, unspecified (principal); R45.851 Suicidal ideations; E28.2 Polycystic ovarian syndrome; Z20.822 Contact with and (suspected) exposure to COVID-19; F17.200 Nicotine dependence, unspecified, uncomplicated; F43.10 Post-traumatic stress disorder, unspecified; G47.00 Insomnia, unspecified; Z59.00 Homelessness unspecified; Z63.5 Disruption of family by separation and divorce; Z79.899 Other long term (current) drug therapy; Z91.51 Personal history of suicidal behavior
CPT/HCPCS: 80053; 80061; 80306; 81003; 81025; 82075; 83036; 84443; 85025; 87635; 90686; 90732; 99285

== ENCOUNTER 2021-12-09 04:01 | Inpatient (IN) | payer MEDICAID, OTHER ==
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
[2021-12-09 08:11] LABS: Appearance,Urine Clear (Clear); Bilirubin,Urine Negative (Negative); Blood,Urine Negative (Negative); Color,Urine Yellow; Glucose,Urine (UA) Negative (Negative); Ketones,Urine Negative (Negative); Leukocyte Esterase,Urine Negative (Negative); Nitrite,Urine Negative (Negative); Protein,Urine Negative (Negative); Specific Gravity,Urine 1.015 (1.001-1.035); Urobilinogen,Urine <2.0 mg/dL (<2.0)
[2021-12-09 08:23] LABS: Amphetamine Screen,Urine Not Detected (NotDetected); Barbiturate Screen,Urine Not Detected (NotDetected); Benzodiazepines Screen,Urine Not Detected (NotDetected); Cocaine Screen,Urine Not Detected (NotDetected); Methadone Screen, Urine Not Detected (NotDetected); Opiate Screen,Urine Not Detected (NotDetected); Oxycodone Screen, Urine Not Detected (NotDetected); Phencyclidine Screen,Urine Not Detected (NotDetected); Tricyclic Antidepressant,Urine Not Detected (NotDetected); Urn Cannabinoid Scrn Detected (NotDetected)
[2021-12-09] MEDS ORDERED: MAG HYDROX/AL HYDROX/SIMETH 30 ML CUP PO PRN (10:57)
[2021-12-09] MEDS ORDERED: MAGNESIUM HYDROXIDE 2,400 MG/10 ML CUP PO PRN (10:57)
[2021-12-09] MEDS ORDERED: HALOPERIDOL LACTATE 5 MG/ML 1 ML VIAL IM PRN (10:57)
[2021-12-09] MEDS ORDERED: ACETAMINOPHEN TAB 325 MG TAB PO PRN (10:57)
[2021-12-09] MEDS ORDERED: NICOTINE 14MG/24HR PATCH TRANSDERM SCH (11:00)
[2021-12-09] MEDS ORDERED: haloperidoL 1 MG TAB PO PRN (11:00)
[2021-12-09] MEDS ORDERED: LORazepam 2 MG/ML INJ IV PRN (11:00)
[2021-12-09] MEDS ORDERED: HYDROCORTISONE 1% CREAM 30 GM TUBE TOPICAL PRN (11:01)
[2021-12-09] MEDS: VORTIOXETINE HYDROBROMIDE 20 MG TABLET PO SCH (12:08)
[2021-12-09] MEDS: NICOTINE 21MG/24HR PATCH TRANSDERM SCH (12:10)
--- NOTE | 2021-12-09 13:28 | P.HPMEDMHU ---
History of Present Illness Chief Complaint: Medical consult Patient is a 31-year-old female with a past medical history significant for polysubstance abuse, major depression disorder that presents to the hospital secondary to having unsafe and extremity depressed. Internal medicine was consulted for medical management. She denies any medical conditions to me. Vital signs are stable afebrile, normotensive, saturating on room air, urinalysis negative, toxicology positive for THC and negative for coronavirus. She denies any constitutional symptoms including chest pain, shortness of breath, palpitations, nausea or vomiting. Past Medical History Past Medical History: No Reported History Additional Past Medical History / Comment(s): PCOS History of Any Multi-Drug Resistant Organisms: None Reported Past Surgical History: No Surgical Hx Reported Past Anesthesia/Blood Transfusion Reactions: No Reported Reaction Past Psychological History: Bipolar Smoking Status: Former smoker Past Alcohol Use History: Daily Past Drug Use History: Marijuana - Past Family History Mother Family Medical History: Hyperlipidemia Medications and Allergies Home Medications Medication Instructions Recorded Confirmed Type Apri 0.15-0.03mg 1 tab PO DAILY 30 Days #0 12/06/21 12/09/21 Rx Hydrocortisone Cream 1 applic TOPICAL BID PRN #1 cream 12/06/21 12/09/21 Rx [Hydrocortisone 1% Cream] Ibuprofen [Motrin Ib] 200 mg PO Q8H PRN 30 Days tab 12/06/21 12/09/21 Rx Nicotine 14Mg/24Hr Patch [Habitrol] 1 patch TRANSDERM DAILY 14 Days 12/06/21 12/09/21 Rx patch QUEtiapine [SEROquel] 25 mg PO HS 30 Days tab 12/06/21 12/09/21 Rx Vortioxetine Hydrobromide 20 mg PO DAILY 30 Days tablet 12/06/21 12/09/21 Rx [Trintellix] Allergies Allergy/AdvReac Type Severity Reaction Status Date / Time ciprofloxacin [From Cipro] Allergy Rash/Hives Verified 12/09/21 11:34 clavulanic acid Allergy Rash/Hives Verified 12/09/21 11:34 [From Augmentin] nickel Allergy Rash/Hives Verified 12/09/21 11:34 risperidone [From Risperdal] Allergy Unknown Verified 12/09/21 11:34 Childhood amoxicillin [From Augmentin] AdvReac Rash/Hives Verified 12/09/21 11:34 Physical Exam Vitals: Vital Signs Temp Pulse Pulse Resp BP BP Pulse Ox 12/09/21 12:18 98.1 F 89 17 143/96 12/09/21 11:37 98.1 F 89 17 143/96 12/09/21 04:07 98.3 F 80 22 161/90 97 Intake and Output 12/08/21 12/09/21 12/09/21 22:59 06:59 14:59 Other: Weight 58.967 kg 58.967 kg Gen. patient is tearful during examination and seems depressed Cardio normal S1/S2 Respiratory no wheezing or rhonchi appreciated Abdomen soft, nontender Psychiatry patient is depressed however anoderm 3 Cranial Nerve Examination - Cranial Nerves Cranial Nerve I- Olfactory: Intact Cranial Nerve II- Optic: Intact Cranial Nerve III- Oculomotor: Intact Cranial Nerve IV- Trochlear: Intact Cranial Nerve V- Trigeminal: Intact Cranial Nerve - Abducens: Intact Cranial Nerve VII- Facial: Intact Cranial Nerve VIII- Auditory: Intact Cranial Nerve IX- Glossopharyngeal: Intact Cranial Nerve X- Vagus: Intact Cranial Nerve XI- Accessory: Intact Cranial Nerve XII- Hypoglossal: Intact Results Labs: Abnormal Lab Results - Last 24 Hours (Table) 12/09/21 Range/Units 08:01 U Marijuana (THC) Screen Detected H (NotDetected) Thrombosis Risk Factor Assmnt - Choose All That Apply Any of the Below Risk Factors Present?: No Other Risk Factors: No Thrombosis Risk Factor Assessment Level: Very Low Risk Assessment and Plan Assessment: Assessment: #1 major depression disorder #2 polysubstance abuse Plan: -Continue management as per psychiatry unit -Vital signs, urinalysis and toxicology reviewed -Please not hesitate to contact us with any questions.
[2021-12-09] MEDS: hydrOXYzine pamoate 25 MG CAP PO PRN (20:06)
[2021-12-09] MEDS ORDERED: QUEtiapine 25 MG TAB PO SCH (21:00)
[2021-12-09] MEDS ORDERED: LORazepam 2 MG/ML INJ IM PRN (22:28)
[2021-12-10] MEDS: NICOTINE 21MG/24HR PATCH TRANSDERM SCH (07:46)
[2021-12-10] MEDS: VORTIOXETINE HYDROBROMIDE 20 MG TABLET PO SCH (07:46)
[2021-12-10] MEDS: LORazepam 1 MG TAB PO PRN ×2 (09:15→15:10)
[2021-12-10] MEDS ORDERED: BENZOCAINE/MENTHOL LOZENG 1 EACH LOZENGE MUCOUS MEM PRN (09:17)
[2021-12-10 09:20] LABS: Basophils # (A) 0.1 k/uL (0-0.2); Basophils % (A) 1 %; Eosinophils # (A) 0.2 k/uL (0-0.7); Eosinophils % (A) 3 %; HCT 45.5 % (34.0-46.0); HGB 14.8 gm/dL (11.4-16.0); Lymphocytes % (A) 49 %; MCH 31.9 pg (25.0-35.0); MCHC 32.6 g/dL (31.0-37.0); MCV 97.9 fL (80.0-100.0); Mean Platelet Volume 8.9; Monocytes # (A) 0.5 k/uL (0-1.0); Monocytes % (A) 6 %; Neutrophils # (A) 3.1 k/uL (1.3-7.7); Neutrophils % (A) 37 %; Platelet Count 211 k/uL (150-450); RBC 4.64 m/uL (3.80-5.40); RDW 13.3 % (11.5-15.5); WBC 8.2 k/uL (3.8-10.6)
[2021-12-10 09:36] LABS: ALT 21 U/L (4-34); AST 25 U/L (14-36); African American GFR (CKD) >90 (>60 ml/min/1.73 sqM); Albumin 3.6 g/dL (3.5-5.0); Alkaline Phosphatase 76 U/L (38-126); Anion Gap 6 mmol/L; Blood Urea Nitrogen 15 mg/dL (7-17); Calcium 8.8 mg/dL (8.4-10.2); Carbon Dioxide 25 mmol/L (22-30); Chloride 104 mmol/L (98-107); Glucose 88 mg/dL (74-99); Non-African American GFR(CKD) >90 (>60 ml/min/1.73 sqM); Potassium 4.4 mmol/L (3.5-5.1); Sodium 135 mmol/L (137-145); Total Bilirubin 0.6 mg/dL (0.2-1.3); Total Protein 6.2 g/dL (6.3-8.2)
[2021-12-10] MEDS: buPROPion XL 150 MG TAB.ER.24H PO SCH (15:26)
[2021-12-10] MEDS: NICOTINE 14MG/24HR PATCH TRANSDERM SCH (15:26)
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
[2021-12-10] MEDS: QUEtiapine 25 MG TAB PO SCH (20:19)
[2021-12-11] MEDS: NICOTINE 14MG/24HR PATCH TRANSDERM SCH (07:33)
[2021-12-11] MEDS: VORTIOXETINE HYDROBROMIDE 20 MG TABLET PO SCH (07:33)
[2021-12-11] MEDS: buPROPion XL 150 MG TAB.ER.24H PO SCH (07:33)
[2021-12-11] MEDS: NICOTINE 21MG/24HR PATCH TRANSDERM SCH (09:39)
[2021-12-11] MEDS: LORazepam 1 MG TAB PO PRN ×2 (10:20→21:42)
--- NOTE | 2021-12-11 10:23 | P.PN ---
Subjective Progress Note Date: 12/11/21 Principal diagnosis: progress note She was readmitted following her discharge from [facility] on December 06. She relapsed on cocaine Crack and exhibited psychotic episodes of wandering and sleeping in odd places, exhibiting paranoid delusions: " whore killer" with rambling disjointed thoughts and mood swings. She did not harbor consistent thoughts of self-harm or harm to tohers. Self-care was adequate and ADL was within normal limits diag:Cocaine -induced psychosis bipolar disorder, psychotic episodes. PRogress since admission: She was demanding for titration of her nicoderm patch. She wanted a different dosage. She did not have any escalating behavioral disturbances requiring seclusion and restraint. She was otherwise compliant with Unit regulations and medicaiton O: MSE: she was seen in the room. She had moderate pressures of speech and moderatly irritable. She was otherwise coherent , and cooperative respoding to redirection and restructuring her routine on the unit. Affect; irritable with demanding behav. congruent with thought content. Thought: No bizzare paranoid delusons after she was readmitted. She was pre-occupied with housing stability . Craving for cocaine was equivocal. Cognition> oriented x 3 spheres, marginal insight into her condtion A; cocaine induced psychosis. cocaine withdrawal monitoring . Cocaine use disorder, moderate severity Bipolar disorder M; Rx: She may benefit from depot ABility Maintenna . or adding Depakote 2. Engage her to more stable housing . in the [place] 3. Reconnect her to community mental health clinic 4. She fulfiled the inpatient criteria of admission; for stabilization and for restarting her with Rx during her cocaine withdrawal 5. refer to Substance use counselling residential treatment center in [place] Objective - Vital Signs Vital signs: Vital Signs Temp 97.5 F L 12/11/21 07:31 Pulse 69 12/11/21 07:31 Resp 12 12/11/21 07:31 BP 130/93 12/11/21 07:31 Pulse Ox 97 12/11/21 07:31 Intake & Output 12/10/21 12/11/21 12/11/21 18:59 06:59 18:59 Weight 63.049 kg - Labs CBC & Chem 7: 12/10/21 07:29 12/10/21 07:29
[2021-12-11] MEDS: hydrOXYzine pamoate 25 MG CAP PO PRN (13:44)
[2021-12-11] MEDS: IBUPROFEN 200 MG TAB PO PRN (14:53)
[2021-12-11] MEDS: QUEtiapine 25 MG TAB PO SCH (20:41)
[2021-12-12] MEDS: NICOTINE 21MG/24HR PATCH TRANSDERM SCH (07:36)
[2021-12-12] MEDS: buPROPion XL 150 MG TAB.ER.24H PO SCH (07:36)
[2021-12-12] MEDS: VORTIOXETINE HYDROBROMIDE 20 MG TABLET PO SCH (07:36)
[2021-12-12] MEDS: IBUPROFEN 200 MG TAB PO PRN (08:54)
[2021-12-12] MEDS: hydrOXYzine pamoate 25 MG CAP PO PRN (09:35)
[2021-12-12] MEDS: LORazepam 1 MG TAB PO PRN (14:43)
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
[2021-12-12] MEDS: QUEtiapine 25 MG TAB PO SCH (20:30)
[2021-12-12] MEDS: NICOTINE GUM (POLACRILEX) 2 MG GUM BUCCAL PRN (20:49)
[2021-12-13] MEDS: LORazepam 1 MG TAB PO PRN ×3 (02:49→19:48)
[2021-12-13] MEDS: NICOTINE 21MG/24HR PATCH TRANSDERM SCH (06:21)
[2021-12-13 06:47] VITALS: RESP 16
[2021-12-13] MEDS: VORTIOXETINE HYDROBROMIDE 10 MG TABLET PO SCH (07:46)
[2021-12-13] MEDS: buPROPion XL 300 MG TAB.ER.24H PO SCH (07:47)
[2021-12-13] MEDS: IBUPROFEN 200 MG TAB PO PRN (11:19)
--- NOTE | 2021-12-13 15:37 | P.PN ---
Subjective Progress Note Date: 12/13/21 Principal diagnosis: Progress note She was seen today for review of her progrsss. She noted moderate improvement in her mood swings and participated readily in group. SHe was more interested in reading the Holy Bible and sought out pentecostal- related resources for temporary housing before she would settle for more stable housing. She was more aware of the adverse peer influence on her recovery[facility] She would go through the intake proccess within 1 week. No complaint of adverse events from Rx. She was open to talk about her history of substance use MSE: more pleasent , no fidgetting, more cooperative Her attention span his improved. Labile affect has largely resolved. NO formal thought disturbances. No flight of ideas No craving for substnaces. Cog: oriented, insight and judgment has improved. A Diag: bipolar disorder Type II. depressive phase, Cocaine indcued dante > urine toxicology screen was inconsistent with clinical presentation Comorbid ADHD . Plan: discharge by Saturday after she explored all housing options by coco. follow up at [facility]. Rx : continue on quetiapine 25 mg po whs; trintellix 30 mg po od; wellbutrin 300 mg od for ADHD. Objective - Vital Signs Vital signs: Vital Signs Temp 97.5 F L 12/13/21 06:47 Pulse 72 12/13/21 06:47 Resp 16 12/13/21 06:47 BP 138/91 12/13/21 06:47 Pulse Ox 97 12/12/21 06:56 - Labs CBC & Chem 7: 12/10/21 07:29 12/10/21 07:29
[2021-12-13] MEDS: NICOTINE GUM (POLACRILEX) 2 MG GUM BUCCAL PRN (15:56)
[2021-12-13] MEDS: hydrOXYzine pamoate 25 MG CAP PO PRN (17:31)
[2021-12-13] MEDS: QUEtiapine 25 MG TAB PO SCH (19:48)
[2021-12-14 06:38] VITALS: BP 115/54; PULSE 60; TEMP 97.9
[2021-12-14] MEDS: buPROPion XL 300 MG TAB.ER.24H PO SCH (07:56)
[2021-12-14] MEDS: VORTIOXETINE HYDROBROMIDE 10 MG TABLET PO SCH (07:56)
[2021-12-14] MEDS: NICOTINE 21MG/24HR PATCH TRANSDERM SCH (07:56)
[2021-12-14] MEDS: LORazepam 1 MG TAB PO PRN (10:33)
[2021-12-14] MEDS: IBUPROFEN 200 MG TAB PO PRN (10:54)
[2021-12-14] MEDS: hydrOXYzine pamoate 25 MG CAP PO PRN (12:10)
[2021-12-14] MEDS: NICOTINE GUM (POLACRILEX) 2 MG GUM BUCCAL PRN (14:10)
--- NOTE | 2021-12-14 16:10 | P.DS ---
Providers Date of admission: 12/09/21 10:40 Attending physician: Pawan Peter MD Consults: 12/09/21 10:57 Consult Physician Routine Consulting Provider: Joseph Physician Consult Reason/Comments: new admission H & P Do you want consulting provider notified?: Yes Primary care physician: Stated None - Discharge Diagnosis(es) (1) Bipolar disorder, current episode mixed Status: Chronic Priority: High (2) Lack of housing Status: Chronic Priority: High (3) Cannabis use disorder, mild, abuse Status: Chronic (4) Nicotine dependence Status: Chronic Priority: Medium Hospital Course: HISTORY: The patient is a 31-year-old female who is currently homeless. She presented to the [facility] in acute distress b elieving that "someone" was trying to kill her. She alleged that after discharge from this unit in November she did not have stable housing. She described living in various situations including drug houses. On presentation unit she alleged that she was having thoughts of suicide with a plan to hang herself. She denied use of drugs or alcohol with the exception of marijuana. HOSPITAL COURSE: We admitted to the psychiatric unit initially under the care of Dr. Rousseau. We provided a comprehensive psychosocial assessment. The medical doctor md/medical director completed initial physical exam and did not diagnose a major medical problem. Her resumed her outpatient medications including Wellbutrin 300 mg daily, Trintellix 20 mg daily and Seroquel 25 mg at bedtime. Her mood, agitation and overall distress, improved after admission. She approach this radio script writer regarding discharge stating that she is feeling "much better", denied suicidal ideation and alleged that she has a safe place where she can return. Aspen rosas discussed to discharge during team meeting and all were in agreement that she was at her "baseline". During this brief hospitalization she socialized with select peers and staff. However, she did not attend therapeutic groups and activities. She had no problems with sleep or appetite. She reports no management problem and had no episodes of behavioral dyscontrol. MENTAL STATUS ON DISCHARGE: The patient presents alert, pleasant, and cooperative. She was calmly seated without any agitated behavior. She reported that her mood is good. Affect was congruent and euthymic. She denied suicidal or homicidal ideation intent, intent or plan. She denied auditory or visual hallucinations. There was no evidence of any delusional thought content. Her thought process is linear and goal-directed. Her speech is fluent and nonpressured. Her memory and concentration is grossly intact for the purposes of this session. DISPOSITION: We discharged her to her friend's home but were unable to contact the friend because she refused to sign a release of information. She has a [facility] intake scheduled for 12/19/2021. We prescribed him a 30 day supply of her psychotropic medications. Patient Condition at Discharge: Stable Plan - Discharge Summary Discharge Rx Participant: No New Discharge Prescriptions: New Vortioxetine Hydrobromide [Trintellix] 30 mg PO DAILY 30 Days tablet buPROPion XL [Wellbutrin XL] 300 mg PO DAILY 30 Days tablet Continue Ibuprofen [Motrin Ib] 200 mg PO Q8H PRN 30 Days tab PRN Reason: Pain Nicotine 14Mg/24Hr Patch [Habitrol] 1 patch TRANSDERM DAILY 14 Days patch Hydrocortisone Cream [Hydrocortisone 1% Cream] 1 applic TOPICAL BID PRN #1 cream PRN Reason: Skin Irritation Apri 0.15-0.03mg 1 tab PO DAILY 30 Days #0 QUEtiapine [SEROquel] 25 mg PO HS 30 Days tab Discontinued Vortioxetine Hydrobromide [Trintellix] 20 mg PO DAILY 30 Days tablet Discharge Medication List Apri 0.15-0.03mg 1 tab PO DAILY 30 Days #0 12/06/21 [Rx] Hydrocortisone Cream [Hydrocortisone 1% Cream] 1 applic TOPICAL BID PRN #1 cream 12/06/21 [Rx] Ibuprofen [Motrin Ib] 200 mg PO Q8H PRN 30 Days tab 12/06/21 [Rx] Nicotine 14Mg/24Hr Patch [Habitrol] 1 patch TRANSDERM DAILY 14 Days patch 12/06/21 [Rx] QUEtiapine [SEROquel] 25 mg PO HS 30 Days tab 12/14/21 [Rx] Vortioxetine Hydrobromide [Trintellix] 30 mg PO DAILY 30 Days tablet 12/14/21 [Rx] buPROPion XL [Wellbutrin XL] 300 mg PO DAILY 30 Days tablet 12/14/21 [Rx] Follow up Appointment(s)/Referral(s): [facility] [Outside] - 12/19/21 9:00 am (with intake at main site. ) [facility] [NON-STAFF] - 1 Week Patient Instructions/Handouts: Depression (DC) Activity/Diet/Wound Care/Special Instructions: Activity and diet as tolerated. Avoid the use of street drugs and alcohol. Take all medications as prescribed. When you are in need of refills on your medications please contact your medical provider and/or outpatient psychiatrist to have this done. Please go to scheduled outpatient appointment for aftercare treatment. If symptoms return or become worse, call the crisis line at and/or go to the nearest emergency room for evaluation Discharge Disposition: HOME SELF-CARE
== END 2021-12-14 14:44 | disposition home or self-care (01) | DRG 885 ==
LOC: EC 04:01 → 3MHU 10:40
PROVIDERS: ADMIT Psychiatry & Neurology Psychiatry; ATTEND Psychiatry & Neurology Psychiatry
DX: F31.60 Bipolar disorder, current episode mixed, unspecified (principal); R45.851 Suicidal ideations; F14.13 Cocaine abuse, unspecified with withdrawal; R45.850 Homicidal ideations; F14.159 Cocaine abuse with cocaine-induced psychotic disorder, unspecified; F90.9 Attention-deficit hyperactivity disorder, unspecified type; F43.10 Post-traumatic stress disorder, unspecified; Z20.822 Contact with and (suspected) exposure to COVID-19; F12.10 Cannabis abuse, uncomplicated; F17.200 Nicotine dependence, unspecified, uncomplicated; Z71.6 Tobacco abuse counseling; Z79.1 Long term (current) use of non-steroidal anti-inflammatories (NSAID); Z79.899 Other long term (current) drug therapy; Z63.5 Disruption of family by separation and divorce; Z91.410 Personal history of adult physical and sexual abuse; Z59.00 Homelessness unspecified; Z71.51 Drug abuse counseling and surveillance of drug abuser; Z88.1 Allergy status to other antibiotic agents; Z88.0 Allergy status to penicillin; Z88.8 Allergy status to other drugs, medicaments and biological substances; Z91.048 Other nonmedicinal substance allergy status; Z83.49 Family history of other endocrine, nutritional and metabolic diseases; Z81.3 Family history of other psychoactive substance abuse and dependence; Z81.8 Family history of other mental and behavioral disorders
CPT/HCPCS: 80053; 80306; 81003; 81025; 82075; 85025; 87635; 99284

== ENCOUNTER 2021-12-16 09:46 | Emergency (ER) | payer OTHER ==
[2021-12-16 09:53] VITALS: TEMP 98.9
[2021-12-16] MEDS ORDERED: SODIUM CHLORIDE 0.9% 500 ML 500 ML IV STA (10:08)
[2021-12-16] MEDS ORDERED: SODIUM CHLORIDE 0.9% 1,000 ML IV STA (10:08)
[2021-12-16 10:49] LABS: Basophils # (A) 0.1 k/uL (0-0.2); Basophils % (A) 1 %; Eosinophils # (A) 0.2 k/uL (0-0.7); Eosinophils % (A) 2 %; HCT 49.3 % (34.0-46.0); HGB 16.2 gm/dL (11.4-16.0); Lymphocytes # (A) 3.1 k/uL (1.0-4.8); Lymphocytes % (A) 25 %; MCH 31.5 pg (25.0-35.0); MCHC 32.8 g/dL (31.0-37.0); MCV 96.2 fL (80.0-100.0); Monocytes # (A) 0.5 k/uL (0-1.0); Monocytes % (A) 4 %; Neutrophils # (A) 8.3 k/uL (1.3-7.7); Neutrophils % (A) 66 %; Platelet Count 291 k/uL (150-450); RBC 5.13 m/uL (3.80-5.40); RDW 13.8 % (11.5-15.5); WBC 12.5 k/uL (3.8-10.6)
[2021-12-16 10:53] LABS: Appearance,Urine Clear (Clear); Bilirubin,Urine Negative (Negative); Blood,Urine Negative (Negative); Color,Urine Colorless; Glucose,Urine (UA) Negative (Negative); Ketones,Urine Negative (Negative); Leukocyte Esterase,Urine Negative (Negative); Nitrite,Urine Negative (Negative); Protein,Urine Negative (Negative); Specific Gravity,Urine 1.005 (1.001-1.035); Urobilinogen,Urine <2.0 mg/dL (<2.0)
[2021-12-16 11:02] LABS: Amphetamine Screen,Urine Not Detected (NotDetected); Barbiturate Screen,Urine Not Detected (NotDetected); Benzodiazepines Screen,Urine Not Detected (NotDetected); Cocaine Screen,Urine Not Detected (NotDetected); Methadone Screen, Urine Not Detected (NotDetected); Opiate Screen,Urine Not Detected (NotDetected); Oxycodone Screen, Urine Not Detected (NotDetected); Phencyclidine Screen,Urine Not Detected (NotDetected); Tricyclic Antidepressant,Urine Not Detected (NotDetected); Urn Cannabinoid Scrn Not Detected (NotDetected)
[2021-12-16 11:27] LABS: ALT 28 U/L (4-34); AST 29 U/L (14-36); African American GFR (CKD) >90 (>60 ml/min/1.73 sqM); Albumin 4.6 g/dL (3.5-5.0); Alcohol <10 mg/dL; Alkaline Phosphatase 92 U/L (38-126); Amylase 104 U/L (30-110); Anion Gap 9 mmol/L; Blood Urea Nitrogen 15 mg/dL (7-17); Calcium 9.7 mg/dL (8.4-10.2); Carbon Dioxide 22 mmol/L (22-30); Chloride 105 mmol/L (98-107); Glucose 91 mg/dL (74-99); Lipase 85 U/L (23-300); Non-African American GFR(CKD) >90 (>60 ml/min/1.73 sqM); Sodium 136 mmol/L (137-145); Total Bilirubin 0.7 mg/dL (0.2-1.3); Total Protein 7.5 g/dL (6.3-8.2)
--- NOTE | 2021-12-16 13:03 | ED ---
General Adult HPI - General Chief complaint: Abdominal Pain Stated complaint: sore throat, nausea, left/right flank pain,headach Time Seen by Provider: 12/16/21 09:54 Source: patient, RN notes reviewed Mode of arrival: ambulatory Limitations: no limitations - History of Present Illness Initial comments: Is a 31-year-old female presents emergency department for evaluation of multiple complaints. Patient states that she's had in his condition, sore throat, headache, abdominal pain, body aches. Patient states she is transfer: 2 days ago which was negative. Patient states that she was really recently admitted to [facility], was discharged. Patient has been suicidal homicidal she states she is currently homeless which is not helping her case. She is concerned about her kidney function that she's been told she has kidney problems. Patient denies any significant vomiting diarrhea constipation dysuria hematuria. - Related Data Previous Rx's Medication Instructions Recorded Apri 0.15-0.03mg 1 tab PO DAILY 30 Days #0 12/06/21 Hydrocortisone Cream 1 applic TOPICAL BID PRN #1 cream 12/06/21 [Hydrocortisone 1% Cream] Ibuprofen [Motrin Ib] 200 mg PO Q8H PRN 30 Days tab 12/06/21 Nicotine 14Mg/24Hr Patch [Habitrol] 1 patch TRANSDERM DAILY 14 Days 12/06/21 patch QUEtiapine [SEROquel] 25 mg PO HS 30 Days tab 12/14/21 Vortioxetine Hydrobromide 30 mg PO DAILY 30 Days tablet 12/14/21 [Trintellix] buPROPion XL [Wellbutrin XL] 300 mg PO DAILY 30 Days tablet 12/14/21 Allergies Allergy/AdvReac Type Severity Reaction Status Date / Time ciprofloxacin [From Cipro] Allergy Rash/Hives Verified 12/16/21 09:53 clavulanic acid Allergy Rash/Hives Verified 12/16/21 09:53 [From Augmentin] nickel Allergy Rash/Hives Verified 12/16/21 09:53 risperidone [From Risperdal] Allergy Unknown Verified 12/16/21 09:53 Childhood amoxicillin [From Augmentin] AdvReac Rash/Hives Verified 12/16/21 09:53 Review of Systems ROS Statement: Those systems with pertinent positive or pertinent negative responses have been documented in the HPI. ROS Other: All systems not noted in ROS Statement are negative. Past Medical History Past Medical History: No Reported History Additional Past Medical History / Comment(s): PCOS History of Any Multi-Drug Resistant Organisms: None Reported Past Surgical History: No Surgical Hx Reported Past Anesthesia/Blood Transfusion Reactions: No Reported Reaction Past Psychological History: Bipolar Smoking Status: Former smoker Past Alcohol Use History: Daily Past Drug Use History: Marijuana - Past Family History Mother Family Medical History: Hyperlipidemia General Exam Limitations: no limitations General appearance: alert, in no apparent distress Head exam: Present: atraumatic, normocephalic, normal inspection Eye exam: Present: normal appearance, PERRL, EOMI. Absent: scleral icterus, conjunctival injection, periorbital swelling ENT exam: Present: mucous membranes moist, TM's normal bilaterally. Absent: normal exam, normal oropharynx (Postnasal drainage) Neck exam: Present: normal inspection, full ROM. Absent: tenderness, meningismus, lymphadenopathy Respiratory exam: Present: normal lung sounds bilaterally. Absent: respiratory distress, wheezes, rales, rhonchi, stridor Cardiovascular Exam: Present: regular rate, normal rhythm, normal heart sounds. Absent: systolic murmur, diastolic murmur, rubs, gallop, clicks GI/Abdominal exam: Present: soft, normal bowel sounds. Absent: distended, tenderness, guarding, rebound, rigid Back exam: Absent: CVA tenderness (R), CVA tenderness (L) Course Vital Signs 12/16/21 12/16/21 09:48 13:36 Temperature 98.9 F Pulse Rate 101 H 74 Respiratory 18 17 Rate Blood Pressure 147/101 143/104 O2 Sat by Pulse 96 98 Oximetry Medical Decision Making - Medical Decision Making Patient's labs reveal no significant findings. This most likely related to viral infection. She has some postnasal drainage, patient has no localizing abdominal discomfort. Patient will be discharged to outpatient she states she feels greatly improved after IV fluid hydration. - Lab Data Result diagrams: 12/16/21 10:34 12/16/21 10:34 Lab Results 12/16/21 12/16/21 12/16/21 Range/Units 10:34 10:34 10:34 WBC 12.5 H (3.8-10.6) k/uL RBC 5.13 (3.80-5.40) m/uL Hgb 16.2 H (11.4-16.0) gm/dL Hct 49.3 H (34.0-46.0) % MCV 96.2 (80.0-100.0) fL MCH 31.5 (25.0-35.0) pg MCHC 32.8 (31.0-37.0) g/dL RDW 13.8 (11.5-15.5) % Plt Count 291 (150-450) k/uL MPV 8.0 Neutrophils % 66 % Lymphocytes % 25 % Monocytes % 4 % Eosinophils % 2 % Basophils % 1 % Neutrophils # 8.3 H (1.3-7.7) k/uL Lymphocytes # 3.1 (1.0-4.8) k/uL Monocytes # 0.5 (0-1.0) k/uL Eosinophils # 0.2 (0-0.7) k/uL Basophils # 0.1 (0-0.2) k/uL Sodium (137-145) mmol/L Potassium (3.5-5.1) mmol/L Chloride (98-107) mmol/L Carbon Dioxide (22-30) mmol/L Anion Gap mmol/L BUN (7-17) mg/dL Creatinine (0.52-1.04) mg/dL Est GFR (CKD-EPI)AfAm (>60 ml/min/1.73 sqM) Est GFR (CKD-EPI)NonAf (>60 ml/min/1.73 sqM) Glucose (74-99) mg/dL Plasma Lactic Acid Aayush (0.7-2.0) mmol/L Calcium (8.4-10.2) mg/dL Total Bilirubin (0.2-1.3) mg/dL AST (14-36) U/L ALT (4-34) U/L Alkaline Phosphatase (38-126) U/L Total Protein (6.3-8.2) g/dL Albumin (3.5-5.0) g/dL Amylase (30-110) U/L Lipase (23-300) U/L Urine Color Colorless Urine Appearance Clear (Clear) Urine pH 6.0 (5.0-8.0) Ur Specific [place] 1.005 (1.001-1.035) Urine Protein Negative (Negative) Urine Glucose (UA) Negative (Negative) Urine Ketones Negative (Negative) Urine Blood Negative (Negative) Urine Nitrite Negative (Negative) Urine Bilirubin Negative (Negative) Urine Urobilinogen <2.0 (<2.0) mg/dL Ur Leukocyte Esterase Negative (Negative) Urine HCG, Qual Not Detected (Not Detectd) Urine Opiates Screen (NotDetected) Ur Oxycodone Screen (NotDetected) Urine Methadone Screen (NotDetected) Ur Propoxyphene Screen (NotDetected) Ur Barbiturates Screen (NotDetected) U Tricyclic Antidepress (NotDetected) Ur Phencyclidine Scrn (NotDetected) Ur Amphetamines Screen (NotDetected) U Methamphetamines Scrn (NotDetected) U Benzodiazepines Scrn (NotDetected) Urine Cocaine Screen (NotDetected) U Marijuana (THC) Screen (NotDetected) Serum Alcohol mg/dL Group A Strep Rapid (Negative) 12/16/21 12/16/21 12/16/21 Range/Units 10:34 10:34 10:34 WBC (3.8-10.6) k/uL RBC (3.80-5.40) m/uL Hgb (11.4-16.0) gm/dL Hct (34.0-46.0) % MCV (80.0-100.0) fL MCH (25.0-35.0) pg MCHC (31.0-37.0) g/dL RDW (11.5-15.5) % Plt Count (150-450) k/uL MPV Neutrophils % % Lymphocytes % % Monocytes % % Eosinophils % % Basophils % % Neutrophils # (1.3-7.7) k/uL Lymphocytes # (1.0-4.8) k/uL Monocytes # (0-1.0) k/uL Eosinophils # (0-0.7) k/uL Basophils # (0-0.2) k/uL Sodium 136 L (137-145) mmol/L Potassium 4.0 (3.5-5.1) mmol/L Chloride 105 (98-107) mmol/L Carbon Dioxide 22 (22-30) mmol/L Anion Gap 9 mmol/L BUN 15 (7-17) mg/dL Creatinine 0.71 (0.52-1.04) mg/dL Est GFR (CKD-EPI)AfAm >90 (>60 ml/min/1.73 sqM) Est GFR (CKD-EPI)NonAf >90 (>60 ml/min/1.73 sqM) Glucose 91 (74-99) mg/dL Plasma Lactic Acid Aayush 1.4 (0.7-2.0) mmol/L Calcium 9.7 (8.4-10.2) mg/dL Total Bilirubin 0.7 (0.2-1.3) mg/dL AST 29 (14-36) U/L ALT 28 (4-34) U/L Alkaline Phosphatase 92 (38-126) U/L Total Protein 7.5 (6.3-8.2) g/dL Albumin 4.6 (3.5-5.0) g/dL Amylase 104 (30-110) U/L Lipase 85 (23-300) U/L Urine Color Urine Appearance (Clear) Urine pH (5.0-8.0) Ur Specific [place] (1.001-1.035) Urine Protein (Negative) Urine Glucose (UA) (Negative) Urine Ketones (Negative) Urine Blood (Negative) Urine Nitrite (Negative) Urine Bilirubin (Negative) Urine Urobilinogen (<2.0) mg/dL Ur Leukocyte Esterase (Negative) Urine HCG, Qual (Not Detectd) Urine Opiates Screen (NotDetected) Ur Oxycodone Screen (NotDetected) Urine Methadone Screen (NotDetected) Ur Propoxyphene Screen (NotDetected) Ur Barbiturates Screen (NotDetected) U Tricyclic Antidepress (NotDetected) Ur Phencyclidine Scrn (NotDetected) Ur Amphetamines Screen (NotDetected) U Methamphetamines Scrn (NotDetected) U Benzodiazepines Scrn (NotDetected) Urine Cocaine Screen (NotDetected) U Marijuana (THC) Screen (NotDetected) Serum Alcohol <10 mg/dL Group A Strep Rapid Negative (Negative) 12/16/21 Range/Units 10:34 WBC (3.8-10.6) k/uL RBC (3.80-5.40) m/uL Hgb (11.4-16.0) gm/dL Hct (34.0-46.0) % MCV (80.0-100.0) fL MCH (25.0-35.0) pg MCHC (31.0-37.0) g/dL RDW (11.5-15.5) % Plt Count (150-450) k/uL MPV Neutrophils % % Lymphocytes % % Monocytes % % Eosinophils % % Basophils % % Neutrophils # (1.3-7.7) k/uL Lymphocytes # (1.0-4.8) k/uL Monocytes # (0-1.0) k/uL Eosinophils # (0-0.7) k/uL Basophils # (0-0.2) k/uL Sodium (137-145) mmol/L Potassium (3.5-5.1) mmol/L Chloride (98-107) mmol/L Carbon Dioxide (22-30) mmol/L Anion Gap mmol/L BUN (7-17) mg/dL Creatinine (0.52-1.04) mg/dL Est GFR (CKD-EPI)AfAm (>60 ml/min/1.73 sqM) Est GFR (CKD-EPI)NonAf (>60 ml/min/1.73 sqM) Glucose (74-99) mg/dL Plasma Lactic Acid Aayush (0.7-2.0) mmol/L Calcium (8.4-10.2) mg/dL Total Bilirubin (0.2-1.3) mg/dL AST (14-36) U/L ALT (4-34) U/L Alkaline Phosphatase (38-126) U/L Total Protein (6.3-8.2) g/dL Albumin (3.5-5.0) g/dL Amylase (30-110) U/L Lipase (23-300) U/L Urine Color Urine Appearance (Clear) Urine pH (5.0-8.0) Ur Specific [place] (1.001-1.035) Urine Protein (Negative) Urine Glucose (UA) (Negative) Urine Ketones (Negative) Urine Blood (Negative) Urine Nitrite (Negative) Urine Bilirubin (Negative) Urine Urobilinogen (<2.0) mg/dL Ur Leukocyte Esterase (Negative) Urine HCG, Qual (Not Detectd) Urine Opiates Screen Not Detected (NotDetected) Ur Oxycodone Screen Not Detected (NotDetected) Urine Methadone Screen Not Detected (NotDetected) Ur Propoxyphene Screen Not Detected (NotDetected) Ur Barbiturates Screen Not Detected (NotDetected) U Tricyclic Antidepress Not Detected (NotDetected) Ur Phencyclidine Scrn Not Detected (NotDetected) Ur Amphetamines Screen Not Detected (NotDetected) U Methamphetamines Scrn Not Detected (NotDetected) U Benzodiazepines Scrn Not Detected (NotDetected) Urine Cocaine Screen Not Detected (NotDetected) U Marijuana (THC) Screen Not Detected (NotDetected) Serum Alcohol mg/dL Group A Strep Rapid (Negative) Disposition Clinical Impression: Viral infection, Acute pharyngitis, Abdominal pain Disposition: HOME SELF-CARE Condition: Stable Instructions (If sedation given, give patient instructions): Abdominal Pain (ED) Additional Instructions: Please return to the ER for any worsening,or changing of symptoms or any other concerns Is patient prescribed a controlled substance at d/c from ED?: No Referrals: Haja Girard MD [Primary Care Provider] - 1-2 days Time of Disposition: 13:03
[2021-12-16 13:37] VITALS: BP 143/104; PULSE 74; RESP 17
== END 2021-12-16 13:38 | disposition home or self-care (01) ==
LOC: EC 09:46
DX: J02.9 Acute pharyngitis, unspecified (principal); B34.9 Viral infection, unspecified; R10.9 Unspecified abdominal pain; Z87.891 Personal history of nicotine dependence; Z88.1 Allergy status to other antibiotic agents; Z91.048 Other nonmedicinal substance allergy status; Z88.8 Allergy status to other drugs, medicaments and biological substances; Z88.0 Allergy status to penicillin
CPT/HCPCS: 36415; 80053; 82150; 83605; 83690; 85025; 81003; 81025; 80306; 87081; 87430; 99284; 96360; 96361; G0480; 80320

== ENCOUNTER 2022-07-25 13:54 | Inpatient (IN) | payer MEDICAID, OTHER ==
--- NOTE | 2022-07-25 15:59 | ED ---
General Adult HPI - General Chief complaint: Psychiatric Symptoms Stated complaint: mental health Time Seen by Provider: 07/25/22 15:27 Source: patient, RN notes reviewed, old records reviewed Mode of arrival: ambulatory Limitations: no limitations - History of Present Illness Initial comments: 32-year-old female who presents for psychiatric evaluation. Patient is requesting admission to [facility]. She states that she is not right. She is somewhat paranoid. She believes that she's having an adverse medication reaction to her Abilify. She states she is withdrawing from her Abilify. She denies suicidal ideation but states "I'm not right". No illicit drugs or alcohol. - Related Data Home Medications Medication Instructions Recorded Confirmed Norelgestromin/Ethin.estradiol 1 patch TRANSDERM WEEKLY 07/25/22 07/25/22 [Zafemy 150-35 Mcg/Day Patch] Allergies Allergy/AdvReac Type Severity Reaction Status Date / Time ciprofloxacin [From Cipro] Allergy Rash/Hives Verified 12/16/21 09:53 clavulanic acid Allergy Rash/Hives Verified 12/16/21 09:53 [From Augmentin] nickel Allergy Rash/Hives Verified 12/16/21 09:53 risperidone [From Risperdal] Allergy Unknown Verified 12/16/21 09:53 Childhood amoxicillin [From Augmentin] AdvReac Rash/Hives Verified 12/16/21 09:53 Review of Systems ROS Statement: Those systems with pertinent positive or pertinent negative responses have been documented in the HPI. ROS Other: All systems not noted in ROS Statement are negative. Past Medical History Past Medical History: No Reported History Additional Past Medical History / Comment(s): PCOS History of Any Multi-Drug Resistant Organisms: None Reported Past Surgical History: No Surgical Hx Reported Past Anesthesia/Blood Transfusion Reactions: No Reported Reaction Past Psychological History: Bipolar Smoking Status: Former smoker Past Alcohol Use History: Daily Past Drug Use History: Marijuana - Past Family History Mother Family Medical History: Hyperlipidemia General Exam Limitations: no limitations General appearance: alert, in no apparent distress Head exam: Present: atraumatic, normocephalic Eye exam: Present: normal appearance, PERRL Neck exam: Present: normal inspection. Absent: tenderness, meningismus Respiratory exam: Present: normal lung sounds bilaterally. Absent: respiratory distress, wheezes Cardiovascular Exam: Present: regular rate, normal rhythm GI/Abdominal exam: Present: soft. Absent: distended, tenderness Extremities exam: Present: normal inspection, normal capillary refill Neurological exam: Present: alert, oriented X3, CN II-XII intact. Absent: motor sensory deficit Psychiatric exam: Present: flat affect. Absent: suicidal ideation Skin exam: Present: warm, dry, intact. Absent: cyanosis, diaphoretic Course Vital Signs 07/25/22 14:09 Temperature 97.6 F Pulse Rate 116 H Respiratory 20 Rate Blood Pressure 127/93 O2 Sat by Pulse 96 Oximetry Medical Decision Making - Medical Decision Making 32-year-old female presenting for psychiatric evaluation. Patient has been medically cleared and evaluated by EPS and felt to require inpatient psychiatric evaluation treatment. She will be admitted to this institution. - Lab Data Lab Results 07/25/22 07/25/22 Range/Units 15:49 15:49 Urine Color Yellow Urine Appearance Cloudy H (Clear) Urine pH 5.5 (5.0-8.0) Ur Specific [place] 1.030 (1.001-1.035) Urine Protein Trace H (Negative) Urine Glucose (UA) Negative (Negative) Urine Ketones Negative (Negative) Urine Blood Negative (Negative) Urine Nitrite Negative (Negative) Urine Bilirubin Negative (Negative) Urine Urobilinogen <2.0 (<2.0) mg/dL Ur Leukocyte Esterase Trace H (Negative) Urine RBC 3 (0-5) /hpf Urine WBC 5 (0-5) /hpf Ur Squamous Epith Cells 11 H (0-4) /hpf Urine Bacteria Rare H (None) /hpf Hyaline Casts 1 (0-2) /lpf Urine Mucus Rare H (None) /hpf Urine HCG, Qual Not Detected (Not Detectd) Urine Opiates Screen Not Detected (NotDetected) Ur Oxycodone Screen Not Detected (NotDetected) Urine Methadone Screen Not Detected (NotDetected) Ur Propoxyphene Screen Not Detected (NotDetected) Ur Barbiturates Screen Not Detected (NotDetected) U Tricyclic Antidepress Not Detected (NotDetected) Ur Phencyclidine Scrn Not Detected (NotDetected) Ur Amphetamines Screen Not Detected (NotDetected) U Methamphetamines Scrn Not Detected (NotDetected) U Benzodiazepines Scrn Not Detected (NotDetected) Urine Cocaine Screen Not Detected (NotDetected) U Marijuana (THC) Screen Detected H (NotDetected) Disposition Clinical Impression: Depression, Psychosis Disposition: ADMITTED IP TO THIS HOSP Condition: Stable Is patient prescribed a controlled substance at d/c from ED?: No Referrals: None,Stated [Primary Care Provider] - 1-2 days Time of Disposition: 17:40
[2022-07-25 16:14] LABS: Appearance,Urine Cloudy (Clear); Bacteria,Urine Rare /hpf; Bilirubin,Urine Negative (Negative); Blood,Urine Negative (Negative); Color,Urine Yellow; Glucose,Urine (UA) Negative (Negative); Hyaline Casts,Urine 1 /lpf (0-2); Ketones,Urine Negative (Negative); Leukocyte Esterase,Urine Trace (Negative); Mucus,Urine Rare /hpf; Nitrite,Urine Negative (Negative); PH, Urine 5.5 (5.0-8.0); Protein,Urine Trace (Negative); RBC,Urine 3 /hpf (0-5); Squamous Epithelial Cell,Urine 11 /hpf (0-4); Urobilinogen,Urine <2.0 mg/dL (<2.0); WBC,Urine 5 /hpf (0-5)
[2022-07-25 16:25] LABS: Amphetamine Screen,Urine Not Detected (NotDetected); Barbiturate Screen,Urine Not Detected (NotDetected); Benzodiazepines Screen,Urine Not Detected (NotDetected); Cocaine Screen,Urine Not Detected (NotDetected); Methadone Screen, Urine Not Detected (NotDetected); Opiate Screen,Urine Not Detected (NotDetected); Oxycodone Screen, Urine Not Detected (NotDetected); Phencyclidine Screen,Urine Not Detected (NotDetected); Tricyclic Antidepressant,Urine Not Detected (NotDetected); Urn Cannabinoid Scrn Detected (NotDetected)
[2022-07-25] MEDS ORDERED: LORazepam 1 MG TAB PO STA (20:30)
[2022-07-25] MEDS ORDERED: ACETAMINOPHEN TAB 325 MG TAB PO PRN (22:07)
[2022-07-25] MEDS ORDERED: MAG HYDROX/AL HYDROX/SIMETH 30 ML CUP PO PRN (22:07)
[2022-07-25] MEDS ORDERED: MAGNESIUM HYDROXIDE 2,400 MG/10 ML CUP PO PRN (22:07)
[2022-07-25] MEDS ORDERED: OLANZapine 10 MG VIAL IM PRN (22:16)
[2022-07-25] MEDS ORDERED: OLANZapine 5 MG TAB PO PRN (22:16)
[2022-07-25] MEDS ORDERED: hydrOXYzine HCL 50 MG/ML 1 ML VIAL IM PRN (22:16)
[2022-07-25] MEDS: NICOTINE GUM (POLACRILEX) 2 MG GUM BUCCAL PRN (23:02)
[2022-07-25] MEDS: hydrOXYzine pamoate 25 MG CAP PO PRN (23:40)
--- NOTE | 2022-07-26 05:33 | P.CONS ---
History of Present Illness - Reason for Consult Consult date: 07/26/22 - History of Present Illness The patient is a 32-year-old female with presented to the emergency room with complaints of paranoia. She was admitted to the [facility] where she was seen and evaluated. The patient states that she believes she is having a bad reaction to her Abilify injections. She reports having difficulty sleeping. She denied any additional physical complaints. Denied experiencing chest discomfort, shortness of breath, fever, chills, cough, nausea, vomiting, abdominal pain, diarrhea. Urine toxicology was positive for marijuana. Review of systems: Pertinent positives and negatives as discussed in HPI, a complete review of systems was performed and all other systems are negative. Physical examination: General: non toxic, no distress, appears at stated age, obese Derm: no unusual rashes/lesions, no unusual ecchymoses, warm, dry Head: atraumatic, normocephalic, symmetric Eyes: EOMI, no lid lag, anicteric sclera ENT: Nose and ears atraumatic, no thrush, no pharyngeal erythema Neck: trachea midline, supple Mouth: no lip lesion, mucus membranes moist Cardiovascular: S1S2 reg, no murmur, no edema Lungs: CTA bilateral, no rhonchi, no rales , no accessory muscle use Abdominal: soft, nontender to palpation, no guarding Ext: no gross muscle atrophy, no contractures, Neuro: No gross focal neuro deficits noted Psych: Alert, oriented, appropriate affect Assessment/plan Marijuana abuse -Advised on the importance of cessation Psychosis -As per psychiatry Thank you for allowing us to participate in the care of this patient. We will follow peripherally. Do not hesitate to contact us with questions. Someone can be reached from the [facility] hospitalist group at all hours of the day at [phone]. Past Medical History Past Medical History: No Reported History Additional Past Medical History / Comment(s): PCOS History of Any Multi-Drug Resistant Organisms: None Reported Past Surgical History: No Surgical Hx Reported Past Anesthesia/Blood Transfusion Reactions: No Reported Reaction Past Psychological History: Bipolar Smoking Status: Former smoker Past Alcohol Use History: Daily Past Drug Use History: Marijuana - Past Family History Mother Family Medical History: Hyperlipidemia Medications and Allergies Home Medications Medication Instructions Recorded Confirmed Type Norelgestromin/Ethin.estradiol 1 patch TRANSDERM WEEKLY 07/25/22 07/25/22 History [Zafemy 150-35 Mcg/Day Patch] Allergies Allergy/AdvReac Type Severity Reaction Status Date / Time ciprofloxacin [From Cipro] Allergy Rash/Hives Verified 12/16/21 09:53 clavulanic acid Allergy Rash/Hives Verified 12/16/21 09:53 [From Augmentin] nickel Allergy Rash/Hives Verified 12/16/21 09:53 risperidone [From Risperdal] Allergy Unknown Verified 12/16/21 09:53 Childhood amoxicillin [From Augmentin] AdvReac Rash/Hives Verified 12/16/21 09:53 Physical Exam Vitals: Vital Signs Temp Pulse Pulse Resp BP BP Pulse Ox 07/25/22 22:47 97.8 F 71 18 121/71 97 07/25/22 14:09 97.6 F 116 H 20 127/93 96 Intake and Output 07/25/22 07/25/22 07/26/22 14:59 22:59 06:59 Other: Weight 74.843 kg 76 kg Results Labs: Abnormal Lab Results - Last 24 Hours (Table) 07/25/22 Range/Units 15:49 Urine Appearance Cloudy H (Clear) Urine Protein Trace H (Negative) Ur Leukocyte Esterase Trace H (Negative) Ur Squamous Epith Cells 11 H (0-4) /hpf Urine Bacteria Rare H (None) /hpf Urine Mucus Rare H (None) /hpf U Marijuana (THC) Screen Detected H (NotDetected)
[2022-07-26] MEDS: NICOTINE GUM (POLACRILEX) 2 MG GUM BUCCAL PRN ×3 (08:03→16:35)
[2022-07-26] MEDS ORDERED: NICOTINE 14MG/24HR PATCH TRANSDERM SCH (09:00)
[2022-07-26 10:05] LABS: Basophils # (A) 0.1 k/uL (0-0.2); Basophils % (A) 1 %; Eosinophils # (A) 0.2 k/uL (0-0.7); Eosinophils % (A) 3 %; HCT 43.1 % (34.0-46.0); HGB 14.6 gm/dL (11.4-16.0); Lymphocytes # (A) 3.3 k/uL (1.0-4.8); Lymphocytes % (A) 43 %; MCH 31.9 pg (25.0-35.0); MCHC 33.9 g/dL (31.0-37.0); MCV 94.1 fL (80.0-100.0); Mean Platelet Volume 9.3; Monocytes # (A) 0.5 k/uL (0-1.0); Monocytes % (A) 6 %; Neutrophils # (A) 3.5 k/uL (1.3-7.7); Neutrophils % (A) 46 %; Platelet Count 196 k/uL (150-450); RBC 4.58 m/uL (3.80-5.40); RDW 13.4 % (11.5-15.5); WBC 7.7 k/uL (3.8-10.6)
[2022-07-26 10:18] LABS: ALT 30 U/L (4-34); AST 28 U/L (14-36); African American GFR (CKD) >90 (>60 ml/min/1.73 sqM); Albumin 3.9 g/dL (3.5-5.0); Alkaline Phosphatase 71 U/L (38-126); Anion Gap 11 mmol/L; Bilirubin, Delta 0.1 mg/dL (0.0-0.2); Bilirubin,Unconjugated 0.6 mg/dL (0.0-1.1); Blood Urea Nitrogen 14 mg/dL (7-17); Calcium 9.2 mg/dL (8.4-10.2); Carbon Dioxide 22 mmol/L (22-30); Chloride 103 mmol/L (98-107); Glucose 73 mg/dL (74-99); Non-African American GFR(CKD) >90 (>60 ml/min/1.73 sqM); Potassium 4.4 mmol/L (3.5-5.1); Sodium 136 mmol/L (137-145); Total Bilirubin 0.7 mg/dL (0.2-1.3); Total Protein 6.4 g/dL (6.3-8.2)
[2022-07-26] MEDS: NICOTINE 14MG/24HR PATCH TRANSDERM SCH (10:30)
[2022-07-26] MEDS: hydrOXYzine pamoate 25 MG CAP PO PRN (13:57)
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
[2022-07-26] MEDS: ARIPiprazole 5 MG TAB PO SCH (15:17)
[2022-07-26 23:50] LABS: Chol/HDL Ratio 4.82 Ratio; LDL Cholesterol,Calculated 226.5 mg/dL (0.0-131.0)
[2022-07-27] MEDS: MELATONIN 3 MG TABLET PO SCH ×2 (04:36→20:21)
[2022-07-27] MEDS: ARIPiprazole 5 MG TAB PO SCH (07:53)
[2022-07-27] MEDS: NICOTINE GUM (POLACRILEX) 2 MG GUM BUCCAL PRN ×2 (07:53→12:26)
[2022-07-27] MEDS: NICOTINE 14MG/24HR PATCH TRANSDERM SCH (07:54)
--- NOTE | 2022-07-27 11:29 | P.PN ---
Progress Note - Text Progress Note Date: 07/27/22 Interval History: Patient was seen wandering the hallways and was directable and agreeable to barrington solis with sba underwriter in the office. Patient states that she is tolerating the Abilify well at this time. She is not reporting any other side effects. She claims that her mood and anxiety of being gradually improving. She states that she would like to be restarted back on trintellix at this time to help her mood. She states that she is going to some groups. She spoke more about being homeless and different options that she has. She claims that she is agreeable to going to senior living in [facility] if needed. States that she slept fairly last night. We spoke about the dose of Abilify increasing over the weekend and also receiving the long-acting injection.. At this time patient denies any suicidal or homical ideations, intent or plan. Patient denies any auditory, visual hallucinations and denies any paranoia or delusions. Patient denies any side effects from the medications and has been compliant with meds. Mental Status Exam: General Appearance: Patient appears to have short hair, wearing glasses, stated age is alert, directable, and attempts to cooperate. Patient appears to have good hygiene and grooming. Behavior: Patient is seated without any agitated behavior. Speech: Patient's speech is fluent and nonpressured. Mood/Affect: Patient reports their mood is "better", affect is congruent and constricted. Suicidality/Homicidality: Patient denies having any homicidal ideation intent or plan. Denies any suicidal ideations intent or plan Perceptions: Patient denies any visual hallucinations and denies any auditory hallucinations Though content/process: There is no evidence of any delusional thought content and thought process is linear and goal-directed. logical. Focus on her medications and housing Memory and concentration: AOX3, grossly intact for the purposes of this session Judgment and insight: poor, improving midlly IMPRESSIONS: Bipolar disorder, mixed episode Cannabis use disorder mild Nicotine dependence Homelessness Plan: -Patient continues to meet criteria for inpatient psychiatric admission for symptom stabilization and safety. Patient has signed adult voluntary form and medication consent and was placed in patient's chart. -Medications: increase Abilify by mouth 7.5 mg daily for mood stabilization and increase to 10 mg saturday. Plan will be to transition patient back on to Abilify Ant formed milligrams IM prior to discharge. Melatonin 5 mg daily at bedtime for sleep. start trintellix 10 mg daily for mood/anxiety -When necessary Ativan and Haldol for agitation/aggression. -NRT - nicotine patch -SW on board for discharge planning. Encouraged the patient to participate in milieu. patient is interested in getting reconnected with [facility] and also with homeless senior living. will look at potential d/c early next week.
[2022-07-27] MEDS: VORTIOXETINE HYDROBROMIDE 10 MG TABLET PO SCH (11:40)
[2022-07-27] MEDS: LORazepam 1 MG TAB PO PRN ×2 (11:41→18:33)
[2022-07-27] MEDS: hydrOXYzine pamoate 25 MG CAP PO PRN (15:05)
[2022-07-28] MEDS: LORazepam 1 MG TAB PO PRN ×3 (02:45→18:30)
[2022-07-28] MEDS: VORTIOXETINE HYDROBROMIDE 10 MG TABLET PO SCH (07:48)
[2022-07-28] MEDS: NICOTINE 14MG/24HR PATCH TRANSDERM SCH (07:48)
[2022-07-28] MEDS: NICOTINE GUM (POLACRILEX) 2 MG GUM BUCCAL PRN ×2 (08:31→16:37)
[2022-07-28] MEDS ORDERED: ARIPiprazole 5 MG TAB PO SCH (09:00)
[2022-07-28] MEDS ORDERED: ARIPiprazole 5 MG TAB PO ONE (09:00)
--- NOTE | 2022-07-28 13:11 | P.PN ---
Subjective Progress Note Date: 07/28/22 Principal diagnosis: IMPRESSIONS: Bipolar disorder, mixed episode Cannabis use disorder mild Nicotine dependence Homelessness Subjective Progress Note Date: 07/28/22 Principal diagnosis: IMPRESSIONS: Bipolar disorder, mixed episode Cannabis use disorder mild Nicotine dependence Homelessness Patient was pleasant and cooperative and came to speak with report writer in the office. Patient states that she is tolerating the Abilify well at this time. However she feels that the Trental X is not high enough to work she says she's been on as much as 30 in the past and would like digit up to 10 from 5 and she tolerated it fine she understands that you can't just jump to the full dose. She is not reporting any side effects. She claims that her mood and anxiety of being gradually improving. She states that she would like to be restarted back on trintellix at this time to help her mood. She states that she is going to groups. States that she slept fairly last night. We spoke about the dose of Abilify increasing over the weekend and also receiving the long-acting injection.. At this time patient denies any suicidal or homical ideations, intent or plan. Patient denies any auditory, visual hallucinations and denies any paranoia or delusions. Patient denies any side effects from the medications and has been compliant with meds. Mental Status Exam: The patient has good insight she says the becoming homeless is actually been beneficial she has, "found myself". Learn to appreciate little things and be more reliant and resilient. General Appearance: Patient appears to have short hair, wearing glasses, stated age is alert, directable, and attempts to cooperate. Patient appears to have good hygiene and grooming. Behavior: Patient is calm with good eye contact pleasant cooperative and positiv e Speech: Patient's speech is fluent and nonpressured. Mood/Affect: Patient reports their mood is "better", affect is congruent and constricted. Suicidality/Homicidality: Patient denies having any homicidal ideation intent or plan. Denies any suicidal ideations intent or plan Perceptions: Patient denies any visual hallucinations and denies any auditory hallucinations Though content/process: There is no evidence of any delusional thought content and thought process is linear and goal-directed. logical. Focus on her medications and housing Memory and concentration: AOX3, grossly intact for the purposes of this session. She is able to plan for the future realistically understanding her first job was to find a place to stay for the winter where she won't freeze. She has been going online and doing online college classes and has been pleased that she got good grades. Judgment and insight: Improved IMPRESSIONS: Bipolar disorder, mixed episode Cannabis use disorder mild Nicotine dependence Homelessness Plan: -Patient continues to meet criteria for inpatient psychiatric admission for symptom stabilization and safety. Patient has signed adult voluntary form and medication consent and was placed in patient's chart. -Medications: increase Abilify by mouth 7.5 mg daily for mood stabilization and increase to 10 mg saturday. Plan will be to transition patient back on to Abilify Maintenna formed milligrams IM prior to discharge. Melatonin 5 mg daily at bedtime for sleep. start trintellix 10 mg daily for mood/anxiety. Also going to increase the Trental X up to 10 mg. She says that Abilify helps but without the antidepressant she doesn't feel the proper balance and feels somewhat -When necessary Ativan and Haldol for agitation/aggression. -NRT - nicotine patch - on board for discharge planning. Encouraged the patient to participate in milieu. patient is interested in getting reconnected with [facility] will look at potential d/c early next week. Objective - Vital Signs Vital signs: Vital Signs Temp 97.7 F 07/28/22 02:46 Pulse 85 07/28/22 02:46 Resp 16 07/28/22 02:46 BP 133/89 07/28/22 02:46 Pulse Ox 95 07/28/22 02:46 FiO2 - Labs CBC & Chem 7: 07/26/22 09:16 07/26/22 09:16 Objective - Vital Signs Vital signs: Vital Signs Temp 97.7 F 07/28/22 02:46 Pulse 85 07/28/22 02:46 Resp 16 07/28/22 02:46 BP 133/89 07/28/22 02:46 Pulse Ox 95 07/28/22 02:46 FiO2 - Labs CBC & Chem 7: 07/26/22 09:16 07/26/22 09:16
[2022-07-28] MEDS: hydrOXYzine pamoate 25 MG CAP PO PRN (14:22)
[2022-07-28] MEDS: MELATONIN 3 MG TABLET PO SCH (18:30)
[2022-07-29] MEDS: LORazepam 1 MG TAB PO PRN ×2 (00:48→13:29)
[2022-07-29 00:50] VITALS: BP 108/71; PULSE 71; RESP 18; TEMP 97.4
--- NOTE | 2022-07-29 08:12 | P.PN ---
Subjective Progress Note Date: 07/29/22 Principal diagnosis: IMPRESSIONS: Bipolar disorder, mixed episode Cannabis use disorder mild Nicotine dependence Homelessness Subjective Progress Note Date: 07/28/22 Principal diagnosis: IMPRESSIONS: Bipolar disorder, mixed episode Cannabis use disorder mild Nicotine dependence Homelessness Patient was pleasant and cooperative and came to speak with me in the office. Patient states that she is tolerating the Abilify well at this time. We reviewed all the things she has tried in the past for bipolar control and there are only a few possibilities remaining Morales good she is tolerating Abilify. I educated her about tardive dyskinesia and what to watch for. She says that she took Trental X for the last 3 years that it works well and she tolerates it well but she needs 20 mg. It will be important for her to be on 20 mg when she is discharged she is getting 10 today and we can increase from there she tolerates it. She is not reporting any side effects. She claims that her mood and anxiety have been gradually improving. She states that she is going to groups. States that she slept fairly last night. She is looking forward to getting the shot of Abilify as that will help her stay stable. At this time patient denies any suicidal or homical ideations, intent or plan. Patient denies any auditory, visual hallucinations and denies any paranoia or delusions. Patient denies any side effects from the medications and has been compliant with meds. Mental Status Exam: The patient is trying to come up with a safe and reasonable plan for immediately after discharge and also long-term. She does have some income she has Medicare to pay for her meds and a small stipend. She has a c omputer and has been taking college classes General Appearance: She is alert, directable, and cooperative. She has good hygiene and grooming. Behavior: Patient is calm with good eye contact pleasant and positive Speech: Patient's speech is fluent and nonpressured. She has good eye contact normal response times Mood/Affect: Patient reports their mood is "better", affect is congruent and constricted. Suicidality/Homicidality: Patient denies having any homicidal ideation intent or plan. Denies any suicidal ideations intent or plan Perceptions: Patient denies any visual hallucinations and denies any auditory hallucinations Though content/process: There is no evidence of any delusional thought content and thought process is linear and goal-directed. logical. Focus on her medications and housing Memory and concentration: She is oriented to person place time and circumstances. Judgment and insight: Improved IMPRESSIONS: Bipolar disorder, mixed episode Cannabis use disorder mild Nicotine dependence Homelessness Plan: -Patient continues to meet criteria for inpatient psychiatric admission for symptom stabilization and safety. -Medications: increase Abilify by mouth 7.5 mg daily for mood stabilization and increase to 10 mg saturday. Plan will be to transition patient back on to Abilify Maintenna formed milligrams IM prior to discharge. Melatonin 5 mg daily at bedtime for sleep. start trintellix 10 mg daily for mood/anxiety and gradually increase up to 20 She says that Abilify helps but without the antidepressant she doesn't feel the proper balance and feels somewhat -When necessary Ativan and Haldol for agitation/aggression. -NRT - nicotine patch -SW on board for discharge planning. Encouraged the patient to participate in milieu. patient is interested in getting reconnected with [facility] and also with homeless senior living. will look at potential d/c early next week. Objective - Vital Signs Vital signs: Vital Signs Temp 97.4 F L 07/29/22 00:49 Pulse 71 07/29/22 00:49 Resp 18 07/29/22 00:49 BP 108/71 07/29/22 00:49 Pulse Ox 95 07/28/22 02:46 FiO2 - Labs CBC & Chem 7: 07/26/22 09:16 07/26/22 09:16
[2022-07-29] MEDS: ARIPiprazole 10 MG TAB PO SCH (08:38)
[2022-07-29] MEDS: VORTIOXETINE HYDROBROMIDE 10 MG TABLET PO SCH (08:38)
[2022-07-29] MEDS: NICOTINE 14MG/24HR PATCH TRANSDERM SCH (08:38)
[2022-07-29] MEDS: NICOTINE GUM (POLACRILEX) 2 MG GUM BUCCAL PRN ×3 (08:40→19:28)
[2022-07-29] MEDS ORDERED: ARIPiprazole IM SYRINGE 400 MG (NO CHARGE) PHARMACY STOCK IM ONE ×2 (11:36→11:45)
[2022-07-29] MEDS: hydrOXYzine pamoate 25 MG CAP PO PRN (18:45)
[2022-07-29] MEDS: MELATONIN 3 MG TABLET PO SCH (21:30)
[2022-07-30] MEDS: NICOTINE GUM (POLACRILEX) 2 MG GUM BUCCAL PRN ×2 (06:06→10:58)
[2022-07-30] MEDS: NICOTINE 14MG/24HR PATCH TRANSDERM SCH ×2 (07:51→07:53)
[2022-07-30] MEDS: VORTIOXETINE HYDROBROMIDE 10 MG TABLET PO SCH (07:52)
[2022-07-30] MEDS: ARIPiprazole 10 MG TAB PO SCH (07:52)
[2022-07-30] MEDS: LORazepam 1 MG TAB PO PRN (09:22)
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
== END 2022-07-30 14:00 | disposition home or self-care (01) | DRG 885 ==
LOC: EC 13:54 → 3MHU 22:06
PROVIDERS: ADMIT Psychiatry & Neurology Psychiatry; ATTEND Psychiatry & Neurology Psychiatry
DX: F31.60 Bipolar disorder, current episode mixed, unspecified (principal); F12.10 Cannabis abuse, uncomplicated; F17.210 Nicotine dependence, cigarettes, uncomplicated; F22 Delusional disorders; F41.9 Anxiety disorder, unspecified; Z71.51 Drug abuse counseling and surveillance of drug abuser; Z71.41 Alcohol abuse counseling and surveillance of alcoholic; Z71.89 Other specified counseling; Z59.01 Sheltered homelessness; Z79.899 Other long term (current) drug therapy; Z53.29 Procedure and treatment not carried out because of patient's decision for other reasons; Z20.822 Contact with and (suspected) exposure to COVID-19; Z63.5 Disruption of family by separation and divorce; Z88.1 Allergy status to other antibiotic agents; Z88.0 Allergy status to penicillin; Z88.8 Allergy status to other drugs, medicaments and biological substances
CPT/HCPCS: 80053; 80061; 80306; 81001; 81025; 82075; 82248; 83036; 84443; 85025; 87635

== ENCOUNTER 2022-08-01 12:06 | Emergency (ER) | payer OTHER ==
[2022-08-01 12:24] VITALS: BP 140/82; PULSE 93; RESP 16; TEMP 98
[2022-08-01 13:31] LABS: Amphetamine Screen,Urine Not Detected (NotDetected); Barbiturate Screen,Urine Not Detected (NotDetected); Benzodiazepines Screen,Urine Detected (NotDetected); Cocaine Screen,Urine Not Detected (NotDetected); Methadone Screen, Urine Not Detected (NotDetected); Opiate Screen,Urine Not Detected (NotDetected); Oxycodone Screen, Urine Not Detected (NotDetected); Phencyclidine Screen,Urine Not Detected (NotDetected); Tricyclic Antidepressant,Urine Not Detected (NotDetected); Urn Cannabinoid Scrn Detected (NotDetected)
[2022-08-01 13:46] LABS: Appearance,Urine Clear (Clear); Bacteria,Urine Rare /hpf; Bilirubin,Urine Negative (Negative); Blood,Urine Small (Negative); Color,Urine Yellow; Glucose,Urine (UA) Negative (Negative); Hyaline Casts,Urine 3 /lpf (0-2); Ketones,Urine Negative (Negative); Leukocyte Esterase,Urine Trace (Negative); Mucus,Urine Few /hpf; Nitrite,Urine Negative (Negative); Protein,Urine Trace (Negative); RBC,Urine 4 /hpf (0-5); Specific Gravity,Urine 1.037 (1.001-1.035); Squamous Epithelial Cell,Urine 8 /hpf (0-4); Urobilinogen,Urine <2.0 mg/dL (<2.0); WBC,Urine 10 /hpf (0-5)
--- NOTE | 2022-08-01 14:04 | ED ---
General Adult HPI - General Source: patient, RN notes reviewed, old records reviewed Mode of arrival: ambulatory Limitations: no limitations <Brent Pulliam - Last Filed: 08/01/22 14:00> <Humberto Yanez - Last Filed: 08/01/22 18:16> - General Chief complaint: Psychiatric Symptoms Stated complaint: mental health Time Seen by Provider: 08/01/22 12:17 - History of Present Illness Initial comments: Patient is a 32-year-old female who presents emergency department for psychiatric evaluation. Was recently evaluated by inpatient psychiatry and discharged home. Patient endorses suicidal ideations, plans. She states she'll take a bottle medications if she is discharged home. Endorse homicidal ideations in triage but denies him to me. Denies visual or auditory hallucinations. Denies alcohol or drug use. Has no other acute complaints at this time. Patient states she has noticed a change in urinary frequency and would like to be tested for UTI. His no other acute complaints at this time. Presents for further evaluation. (Brent Pulliam) - Related Data Home Medications Medication Instructions Recorded Confirmed Norelgestromin/Ethin.estradiol 1 patch TRANSDERM WEEKLY 07/25/22 08/01/22 [Zafemy 150-35 Mcg/Day Patch] Previous Rx's Medication Instructions Recorded ARIPiprazole IM [Abilify Maintena] 400 mg IM QMONTHLY #1 each 07/30/22 ARIPiprazole [Abilify] 10 mg PO DAILY 13 Days tab 07/30/22 Melatonin 6 mg PO HS tab 07/30/22 Nicotine 14Mg/24Hr Patch [Habitrol] 1 patch TRANSDERM DAILY 14 Days 07/30/22 patch Nicotine Gum (Polacrilex) 2 mg BUCCAL Q4HR PRN 28 Days 07/30/22 [Nicorette] pieceofgum Vortioxetine Hydrobromide 10 mg PO DAILY 30 Days tab 07/30/22 [Trintellix] hydrOXYzine pamoate [Vistaril] 50 mg PO BID PRN 30 Days cap 07/30/22 Allergies Allergy/AdvReac Type Severity Reaction Status Date / Time ciprofloxacin [From Cipro] Allergy Rash/Hives Verified 08/01/22 12:24 clavulanic acid Allergy Rash/Hives Verified 08/01/22 12:24 [From Augmentin] nickel Allergy Rash/Hives Verified 08/01/22 12:24 risperidone [From Risperdal] Allergy Unknown Verified 08/01/22 12:24 Childhood amoxicillin [From Augmentin] AdvReac Rash/Hives Verified 08/01/22 12:24 Review of Systems ROS Other: All systems not noted in ROS Statement are negative. <HeraclioBrent - Last Filed: 08/01/22 14:00> ROS Other: All systems not noted in ROS Statement are negative. <Humberto Yanez - Last Filed: 08/01/22 18:16> ROS Statement: Those systems with pertinent positive or pertinent negative responses have been documented in the HPI. Review of Systems: CONST: Denies fever EYES: Denies blurry vision ENT: Denies nasal congestion C/V: Denies Chest pain RESP: Denies shortness of breath GI: Denies abdominal pain : Denies dysuria SKIN: Denies rash. MSK: Denies joint pain. NEURO: Denies headache PSYCH: Denies homicidal ideations/plans/attempts. Denies visual or auditory hallucinations. She endorses suicidal ideation, plan by taking multiple pills. Denies attempt. (Brent Pulliam) Past Medical History Past Medical History: No Reported History Additional Past Medical History / Comment(s): PCOS History of Any Multi-Drug Resistant Organisms: None Reported Past Surgical History: No Surgical Hx Reported Past Anesthesia/Blood Transfusion Reactions: No Reported Reaction Past Psychological History: Bipolar Smoking Status: Former smoker Past Alcohol Use History: Daily Past Drug Use History: Marijuana - Past Family History Mother Family Medical History: Hyperlipidemia <Brent Pulliam - Last Filed: 08/01/22 14:00> General Exam Limitations: no limitations <Brent Pulliam - Last Filed: 08/01/22 14:00> - General Exam Comments Initial Comments: General: Appears in no acute distress. HEAD: Normal with no signs of head trauma. EYES: PERRLA, EOMI, conjunctiva normal, no discharge. ENT: Hearing grossly intact, normal oropharynx. RESPIRATORY: Clear breath sounds bilaterally. No wheezes, rales, or rhonchi. C/V: Regular rate and rhythm. S1 and S2 auscultated, no edema, peripheral pulses 2+ and intact throughout ABD: Abd is soft, nontender, nondistended EXT: Normal range of motion, no obvious deformity SKIN: No rashes or lesions observed on exposed skin. NEURO: Alert and oriented x 4. (Brent Pulliam) Course Vital Signs 08/01/22 12:22 Temperature 98 F Pulse Rate 93 Respiratory 16 Rate Blood Pressure 140/82 O2 Sat by Pulse 96 Oximetry Medical Decision Making <HeraclioBrent - Last Filed: 08/01/22 14:00> - Medical Decision Making Based on the patient's presentation and physical exam, I believe the patient should be evaluated by psychiatry. Suicide precautions place. Sitter was ordered. Patient was placed in green scrubs. BAT is 0. UDS is positive for methamphetamine, benzos, marijuana. Urinalysis is unremarkable. It is a contaminated catch. Vital signs are within acceptable limits. At this time patient is medically cleared for evaluation by psychiatry. Disposition is pending psychiatric evaluation. EPS was notified. (Brent Pulliam) - Lab Data Lab Results 08/01/22 08/01/22 Range/Units 13:08 13:21 Urine Color Yellow Urine Appearance Clear (Clear) Urine pH 6.0 (5.0-8.0) Ur Specific [place] 1.037 H (1.001-1.035) Urine Protein Trace H (Negative) Urine Glucose (UA) Negative (Negative) Urine Ketones Negative (Negative) Urine Blood Small H (Negative) Urine Nitrite Negative (Negative) Urine Bilirubin Negative (Negative) Urine Urobilinogen <2.0 (<2.0) mg/dL Ur Leukocyte Esterase Trace H (Negative) Urine RBC 4 (0-5) /hpf Urine WBC 10 H (0-5) /hpf Ur Squamous Epith Cells 8 H (0-4) /hpf Urine Bacteria Rare H (None) /hpf Hyaline Casts 3 H (0-2) /lpf Urine Mucus Few H (None) /hpf Urine Opiates Screen Not Detected (NotDetected) Ur Oxycodone Screen Not Detected (NotDetected) Urine Methadone Screen Not Detected (NotDetected) Ur Propoxyphene Screen Not Detected (NotDetected) Ur Barbiturates Screen Not Detected (NotDetected) U Tricyclic Antidepress Not Detected (NotDetected) Ur Phencyclidine Scrn Not Detected (NotDetected) Ur Amphetamines Screen Not Detected (NotDetected) U Methamphetamines Scrn Detected H (NotDetected) U Benzodiazepines Scrn Detected H (NotDetected) Urine Cocaine Screen Not Detected (NotDetected) U Marijuana (THC) Screen Detected H (NotDetected) Disposition <Brent Pulliam - Last Filed: 08/01/22 14:00> Is patient prescribed a controlled substance at d/c from ED?: No <Humberto Yanez - Last Filed: 08/01/22 18:16> Clinical Impression: Encounter for psychiatric assessment Disposition: HOME SELF-CARE Condition: Good Instructions (If sedation given, give patient instructions): Mood Disorders (ED) Referrals: None,Stated [Primary Care Provider] - 1-2 days
== END 2022-08-01 18:41 | disposition home or self-care (01) ==
LOC: EC 12:06
DX: Z04.6 Encounter for general psychiatric examination, requested by authority (principal); F31.9 Bipolar disorder, unspecified; F12.90 Cannabis use, unspecified, uncomplicated; Z87.891 Personal history of nicotine dependence; Z88.0 Allergy status to penicillin; Z88.1 Allergy status to other antibiotic agents; Z88.8 Allergy status to other drugs, medicaments and biological substances
CPT/HCPCS: 80306; 81001; 82075; 99284